=== PATIENT | male | born 1970 | race Two or more races ===

== ENCOUNTER 2016-08-22 09:09 | Day surgery (SDC) | payer MEDICARE, OTHER ==
[~2016-08-22 09:09] MED LIST: PROPOFOL INJ 200 MG/20 ML VIAL IV ONE
[2016-08-22 10:45] VITALS: BP 133/76
--- NOTE | 2016-08-22 12:53 | Operative Report ---
Operative Report DATE OF SURGERY: 08/22/16 Operative Report: The risks, benefits and alternatives of the procedure including risks of bleeding, patient requiring surgery are explained to the patient in detail and informed consent is obtained. Patient is taken back to the endoscopy suite. He is placed in a left, lateral decubital position. Timeout is called. Propofol medications administered. An Olympus videoscope this inserted into the patient's rectum. Keeping the lumen in site at all times the scope was then gradually advanced all the way to the cecum. The cecum as identified by the usual anatomical landmarks of the ileocecal valve as well as the appendiceal office. Photodocumentation is obtained. The scope was then sequentially pulled back via the rest segments of the colon including the ascending colon, hepatic flexure, transverse colon, splenic flexure, descending colon and finally into the rectosigmoid colon. Retroflexion maneuvers performed. PREOPERATIVE DIAGNOSIS: Rectal bleeding POSTOPERATIVE DIAGNOSIS: Colon polyp in the ascending colon is removed via snare polypectomy. Internal hemorrhoids OPERATION: Colonoscopy with snare polypectomy SURGEON: DAHLIA LIAO ANESTHESIA: LMAC TISSUE REMOVED OR ALTERED: Colon polyp retrieved COMPLICATIONS: None. ESTIMATED BLOOD LOSS: none. INTRAOPERATIVE FINDINGS: No bleeding lesions noted. And will probably need hemorrhoidectomy. Colon polyp retrieved. No masses, AVMs, diverticulosis noted PROCEDURE: Patient tolerated the procedure well. No immediate post procedure complications are noted. Patient is discharged in good condition. Discharge date 08/22/2016. Discharge diet: Regular. Discharge activity: Regular. Patient does need a follow-up in 2-3 weeks. Surveillance colonoscopy in 3-5 years. We'll await on biopsies. Patient is instructed to call the office or proceed to the emergency room to any further problems or questions.
== END 2016-08-22 10:40 | disposition home or self-care (01) ==
LOC: END 09:09
PROVIDERS: ATTEND Internal Medicine Gastroenterology
PROC: 0DBK8ZX Excision of Ascending Colon, Via Natural or Artificial Opening Endoscopic, Diagnostic (ICD-10-PCS; principal; 2016-08-22 12:00)
DX: D12.2 Benign neoplasm of ascending colon (principal); K62.5 Hemorrhage of anus and rectum; M19.90 Unspecified osteoarthritis, unspecified site; I10 Essential (primary) hypertension; M10.9 Gout, unspecified; K21.9 Gastro-esophageal reflux disease without esophagitis; E66.9 Obesity, unspecified; Z68.42 Body mass index [BMI] 45.0-49.9, adult; Z79.82 Long term (current) use of aspirin; Z79.899 Other long term (current) drug therapy
CPT/HCPCS: 45385; 88305 ×2; J2704; 810

== ENCOUNTER 2018-05-05 22:01 | Emergency (ER) | payer MEDICARE, OTHER ==
[2018-05-05] MEDS ORDERED: CEFTRIAXONE INJ 1000 MG VIAL IV ONE (23:05)
[2018-05-05] MEDS ORDERED: VANCOMYCIN HCL INJ 1000 MG VIAL IV ONE (23:05)
--- NOTE | 2018-05-05 23:08 | ER Document Report ---
ED General - General Chief Complaint: Foot Pain Stated Complaint: LEFT FOOT INFECTION Time Seen by Provider: 05/05/18 22:48 Notes: Patient is a pleasant 47-year-old male presents with complaint of a possible infection on the left foot. He says approximately 3 days ago he noticed an area of an abscess on the lateral aspect of his left foot. He ignored it now the redness is spread into his left foot and lower leg. No fevers. No vomiting. No diarrhea. He is not diabetic. He has no other complaints at this time. TRAVEL OUTSIDE OF THE [place] IN LAST 30 DAYS: No - Related Data Allergies/Adverse Reactions: No Known Allergies Allergy (Verified 05/06/18 00:55) Past Medical History - Social History Smoking Status: Never Smoker Frequency of alcohol use: None Drug Abuse: None Family History: Reviewed & Not Pertinent - Past Medical History Cardiac Medical History: Reports: Hx Hypertension Denies: Hx Coronary Artery Disease, Hx Heart Attack Pulmonary Medical History: Reports: Hx COPD Denies: Hx Asthma, Hx Bronchitis, Hx Pneumonia Neurological Medical History: Denies: Hx Cerebrovascular Accident, Hx Seizures GI Medical History: Reports: Hx Gastroesophageal Reflux Disease Musculoskeletal Medical History: Reports Hx Arthritis Past Surgical History: Reports: Hx Orthopedic Surgery - shoulder - Immunizations Hx Diphtheria, Pertussis, Tetanus Vaccination: Yes Review of Systems - Review of Systems Notes: My Normal Review Basic REVIEW OF SYSTEMS: CONSTITUTIONAL : Denies fever, chills, or sweats. Denies recent illness. RESPIRATORY: Denies cough, cold, or chest congestion. Denies shortness of breath, difficulty breathing, or wheezing. GASTROINTESTINAL: Denies abdominal pain. Denies nausea, vomiting, or diarrhea. MUSCULOSKELETAL: Pain in left foot. SKIN: Denies rash or skin lesions. NEUROLOGICAL: Denies sensory or motor loss. ALL OTHER SYSTEMS REVIEWED AND NEGATIVE. Physical Exam - Vital signs Vitals: Temp Pulse Resp BP Pulse Ox 98.3 F 79 21 H 136/84 H 97 05/06/18 00:49 05/06/18 00:49 05/06/18 00:49 05/06/18 00:49 05/06/18 00:49 - Notes Notes: General Appearance: Well nourished, alert, cooperative, no acute distress, mild to moderate obvious discomfort. Vitals: reviewed, See vital signs table. Eyes: PERRL, EOMI, Conjuctiva clear Mouth: No decreasd moisture Lungs: No wheezing, No rales, No rhonci, No accessory muscle use, good air exchange bilaterally. Heart: Normal rate, Regular rythm, No murmur, no rub Abdomen: Normal BS, soft, No rigidity, No abdominal tenderness, No guarding, no rebound, no abdominal masses, no organomegaly Extremities: Patient has appears to be some cutaneous abscess on the lateral aspect proximal to the left fifth MTP. Some redness and swelling into the foot and distal lower leg. No crepitance. No pain out of proportion to exam. Skin: warm, dry, appropriate color, no rash Neuro: speech clear, oriented x 3, normal affect, responds appropriately to questions. Course - Re-evaluation Re-evalutation: 05/06/18 06:23 Abscess was incision drained. Patient feels improvement after having an abscess in size. Small amount of purulent drainage was expressed. Does have cellulitis going to his foot and lower leg. He was given a dose of vancomycin and Rocephin. I did talk to him about admission versus outpatient treatment. I told him would be okay with outpatient treatment as long as he agreed to return to the ER on Monday for reevaluation. Patient says he prefers not to stay in the hospital and agrees to return to ER immediately on Monday for reevaluation. He is to return to ER immediately if he has spreading redness, increasing swelling, fevers, or if he feels his leg is worsening. Patient otherwise clinically looks very well. His exam is not consistent with necrotizing fasciitis. He has no crepitus. His pain is not out of proportion to exam. I did offer the patient crutches but he says he does not need them and says it is hard for him to use crutches because of a chronic issue with his left elbow and he feels he is able to walk without them. Dictation of this chart was performed using voice recognition software; therefore, there may be some unintended grammatical errors. - Vital Signs Vital signs: Temp Pulse Resp BP Pulse Ox 97.7 F 77 20 150/50 H 97 05/06/18 03:04 05/06/18 03:04 05/06/18 03:04 05/06/18 03:04 05/06/18 03:04 - Laboratory Result Diagrams: 05/05/18 23:14 05/05/18 23:14 Laboratory results interpreted by me: 05/05/18 05/05/18 23:14 23:14 WBC 14.8 H Lymphocytes % 9.8 L Absolute Neutrophils 11.4 H Sodium 134.5 L Chloride 97 L Glucose 123 H Discharge - Discharge Clinical Impression: Foot abscess, left Cellulitis Qualifiers: Site of cellulitis: extremity Site of cellulitis of extremity: lower extremity Laterality: left Qualified Code(s): L03.116 - Cellulitis of left lower limb Condition: Good Disposition: HOME, SELF-CARE Additional Instructions: Please take the antibiotics as prescribed. Please follow up closely with the ER on Monday for reevaluation of your leg. please return to the ER immediately if you develop spreading redness, increasing swelling, fevers, or feel that you are worsening in any way. Stop the antibiotic and return to the ER immediately if you develop a rash. Prescriptions: Cephalexin Monohydrate [Keflex 500 mg Capsule] 500 mg PO QID #28 capsule Sulfamethoxazole/Trimethoprim [Bactrim Ds Tablet] 1 each PO BID #14 tablet Referrals: LORIE GRACE MD [Primary Care Provider] - Follow up in 3-5 days
[2018-05-05 23:42] LABS: ABSOLUTE BASOPHILS # (AUTO) 0.1 10^3/uL (0.0-0.2); ABSOLUTE EOSINOPHILS # (AUTO) 0.5 10^3/uL (0.0-0.6); ABSOLUTE LYMPHOCYTES (AUTO) 1.5 10^3/uL (0.5-4.7); ABSOLUTE MONOCYTES (AUTO) 1.3 10^3/uL (0.1-1.4); ABSOLUTE NEUT (AUTO) 11.4 10^3/uL (1.7-8.2); BASOPHILS % (AUTO) 0.9 % (0-2); EOSINOPHILS % (AUTO) 3.2 % (0-6); HEMATOCRIT 42.8 % (37.9-51.0); HEMOGLOBIN 14.8 g/dL (13.5-17.0); LYMPHOCYTES % (AUTO) 9.8 % (13-45); MEAN CORPUSCULAR HEMOGLOBIN 31.2 pg (27.0-33.4); MEAN CORPUSCULAR HGB CONC 34.7 g/dL (32.0-36.0); MEAN CORPUSCULAR VOLUME 90 fl (80-97); MONOCYTES % (AUTO) 8.9 % (3-13); PLATELET COUNT 253 10^3/uL (150-450); RED BLOOD COUNT 4.77 10^6/uL (4.35-5.55); RED CELL DISTRIBUTION WIDTH 13.3 % (11.5-14.0); SEGMENTED NEUTROPHILS % (AUTO) 77.2 % (42-78); TOTAL CELLS COUNTED % (AUTO) 100 %; WHITE BLOOD COUNT 14.8 10^3/uL (4.0-10.5)
[2018-05-05 23:48] LABS: ANION GAP 13 (5-19); BLOOD UREA NITROGEN 10 mg/dL (7-20); CALCIUM 9.1 mg/dL (8.4-10.2); CARBON DIOXIDE 25 mmol/L (22-30); CHLORIDE 97 mmol/L (98-107); GLUCOSE 123 mg/dL (75-110); POTASSIUM 3.8 mmol/L (3.6-5.0); SODIUM 134.5 mmol/L (137-145)
[2018-05-06] MEDS ORDERED: HYDROMORPHONE HCL INJ/PF 2 MG/ML AMPULE IV ONE (00:22)
[2018-05-06 03:07] VITALS: BP 150/50
== END 2018-05-06 03:07 | disposition home or self-care (01) ==
LOC: ER 22:01
PROC: 0H9NXZZ Drainage of Left Foot Skin, External Approach (ICD-10-PCS; principal; 2018-05-05)
DX: L02.612 Cutaneous abscess of left foot (principal); L03.116 Cellulitis of left lower limb; M79.672 Pain in left foot; I10 Essential (primary) hypertension
CPT/HCPCS: 99283; 96365; 96366; 96367; 36415; 87070; 87205; 85025; 87075; 87077; 80048; 87186; 10060; J1170; J0696; J3370

== ENCOUNTER 2018-05-07 19:35 | Inpatient (IN) | payer MEDICARE, OTHER ==
[2018-05-07] MEDS ORDERED: MORPHINE SULFATE 10 MG/ML INJ IV ONE (22:40)
[2018-05-07] MEDS ORDERED: ONDANSETRON HCL INJ/PF 4 MG/2 ML SDV IV ONE (22:40)
[2018-05-07] MEDS ORDERED: VANCOMYCIN HCL INJ 1000 MG VIAL IV ONE (22:40)
[2018-05-07] MEDS ORDERED: CEFTRIAXONE INJ 1000 MG VIAL IV ONE (22:41)
--- NOTE | 2018-05-07 22:44 | ER Document Report ---
ED Extremity Problem, Lower - General Chief Complaint: Foot Injury Stated Complaint: FOOT PAIN Time Seen by Provider: 05/07/18 22:29 Notes: Patient is a 47-year-old male that comes to the emergency department for chief complaint of left foot infection. He states she is here on Monday, had an incision and drainage performed, states he has been taking Keflex and Bactrim antibiotics since Monday, however the area has significantly worsened with increased pain, increased redness, increased warmth and spreading. He denies fevers or chills, nausea or vomiting. He denies history of diabetes. His tetanus is reportedly up-to-date within 5 years. Past medical history of hypertension, GERD, former smoker, obesity. TRAVEL OUTSIDE OF THE [place] IN LAST 30 DAYS: No - Related Data Allergies/Adverse Reactions: No Known Allergies Allergy (Verified 05/06/18 00:55) Past Medical History - General Information source: Patient - Social History Smoking Status: Former Smoker Frequency of alcohol use: Occasional Drug Abuse: None Lives with: Family Family History: Reviewed & Not Pertinent - Past Medical History Cardiac Medical History: Reports: Hx Hypertension Denies: Hx Coronary Artery Disease, Hx Heart Attack Pulmonary Medical History: Reports: Hx COPD Denies: Hx Asthma, Hx Bronchitis, Hx Pneumonia Neurological Medical History: Denies: Hx Cerebrovascular Accident, Hx Seizures Renal/ Medical History: Denies: Hx Peritoneal Dialysis GI Medical History: Reports: Hx Gastroesophageal Reflux Disease Musculoskeletal Medical History: Reports Hx Arthritis Past Surgical History: Reports: Hx Orthopedic Surgery - shoulder - Immunizations Hx Diphtheria, Pertussis, Tetanus Vaccination: Yes Review of Systems - Review of Systems Constitutional: No symptoms reported EENT: No symptoms reported Cardiovascular: No symptoms reported Respiratory: No symptoms reported Gastrointestinal: No symptoms reported Genitourinary: No symptoms reported Male Genitourinary: No symptoms reported Musculoskeletal: See HPI Skin: See HPI Hematologic/Lymphatic: No symptoms reported Neurological/Psychological: No symptoms reported Physical Exam - Vital signs Vitals: Temp Pulse Resp BP Pulse Ox 98.7 F 65 20 131/69 H 96 05/07/18 20:01 05/07/18 20:01 05/07/18 20:01 05/07/18 20:01 05/07/18 20:01 - Notes Notes: GENERAL: Alert, interacts well. No acute distress. HEAD: Normocephalic, atraumatic. EYES: Pupils equal, round, and reactive to light. Extraocular movements intact. ENT: Oral mucosa moist, tongue midline. NECK: Full range of motion. Supple. Trachea midline. LUNGS: Clear to auscultation bilaterally, no wheezes, rales, or rhonchi. No respiratory distress. HEART: Regular rate and rhythm. No murmur ABDOMEN: Soft, non-tender. Non-distended. Bowel sounds present in all 4 quadrants. EXTREMITIES: Left lower extremity with soft tissue swelling of the foot and distal tibia, erythema extending from the foot up to the distal leg, open wound over the lateral aspect of the foot with some small amount of purulent material expressed. Range of motion of the ankle intact, normal knee exam, normal distal neurovascular exam, normal lower extremity exam otherwise. BACK: no cervical, thoracic, lumbar midline tenderness. No saddle anesthesia, normal distal neurovascular exam. NEUROLOGICAL: Alert and oriented x3. Normal speech. [cranial nerves II through XII grossly intact]. PSYCH: Normal affect, normal mood. SKIN: Warm, dry, normal turgor. No rashes or lesions noted. Course - Re-evaluation Re-evalutation: The incision and drainage location is still open, I expressed some purulent material out of it, afterwards there was some small amount of bleeding. Does not appear to be any fluctuant or indurated area otherwise. The main concern appears to be a large amount of swelling and cellulitis from spreading infection. Unfortunately patient has already been taking outpatient antibiotics. CBC shows leukocytosis. Patient is not tachycardic or febrile. He is not hypotensive. Will discuss with hospitalist for admission, initiated vancomycin and Rocephin antibiotics, patient is not a diabetic. Because of outpatient treatment failure patient will be admitted to hospitalist Dr. Lord, he recommends medical floor admission, recommends x-ray imaging to rule out gas in the foot first. No gas in the foot, patient admitted to medical floor. Patient states agreement with plan. - Vital Signs Vital signs: Temp Pulse Resp BP Pulse Ox 97.6 F 73 20 143/62 H 96 05/08/18 04:22 05/08/18 04:22 05/08/18 04:22 05/08/18 04:22 05/08/18 04:22 - Laboratory Result Diagrams: 05/07/18 23:55 05/07/18 23:55 Laboratory results interpreted by me: 05/07/18 05/07/18 23:55 23:55 WBC 13.7 H Lymphocytes % 12.3 L Absolute Neutrophils 10.0 H Sodium 134.1 L Chloride 97 L BUN 6 L Glucose 125 H Discharge - Discharge Clinical Impression: Left leg pain Cellulitis Qualifiers: Site of cellulitis: extremity Site of cellulitis of extremity: lower extremity Laterality: left Qualified Code(s): L03.116 - Cellulitis of left lower limb Condition: Stable Disposition: ADMITTED INPATIENT Admitting Provider: Hospitalist Unit Admitted: Medical Floor
[2018-05-08 00:21] LABS: ABSOLUTE BASOPHILS # (AUTO) 0.1 10^3/uL (0.0-0.2); ABSOLUTE EOSINOPHILS # (AUTO) 0.6 10^3/uL (0.0-0.6); ABSOLUTE LYMPHOCYTES (AUTO) 1.7 10^3/uL (0.5-4.7); ABSOLUTE MONOCYTES (AUTO) 1.3 10^3/uL (0.1-1.4); BASOPHILS % (AUTO) 0.9 % (0-2); EOSINOPHILS % (AUTO) 4.5 % (0-6); HEMATOCRIT 41.4 % (37.9-51.0); HEMOGLOBIN 14.6 g/dL (13.5-17.0); LYMPHOCYTES % (AUTO) 12.3 % (13-45); MEAN CORPUSCULAR HEMOGLOBIN 31.2 pg (27.0-33.4); MEAN CORPUSCULAR HGB CONC 35.3 g/dL (32.0-36.0); MEAN CORPUSCULAR VOLUME 89 fl (80-97); MONOCYTES % (AUTO) 9.4 % (3-13); PLATELET COUNT 290 10^3/uL (150-450); RED BLOOD COUNT 4.68 10^6/uL (4.35-5.55); RED CELL DISTRIBUTION WIDTH 13.2 % (11.5-14.0); SEGMENTED NEUTROPHILS % (AUTO) 72.9 % (42-78); TOTAL CELLS COUNTED % (AUTO) 100 %; WHITE BLOOD COUNT 13.7 10^3/uL (4.0-10.5)
[2018-05-08 00:32] LABS: ANION GAP 13 (5-19); BLOOD UREA NITROGEN 6 mg/dL (7-20); CARBON DIOXIDE 24 mmol/L (22-30); CHLORIDE 97 mmol/L (98-107); GLUCOSE 125 mg/dL (75-110); POTASSIUM 3.9 mmol/L (3.6-5.0); SODIUM 134.1 mmol/L (137-145)
--- NOTE | 2018-05-08 01:19 | RADIOLOGY REPORT (SQ) ---
CLINICAL DATA: 47-year-old male with infected wound on lateral aspect of left foot with increasing redness and warmth. TECHNICAL DATA: Three x-ray views of the left foot were performed on 05/08/2018 at 1:05 AM. COMPARISONS: None FINDINGS: There is no evidence of fracture or dislocation. There is no significant arthritis or degenerative change. No focal lytic or sclerotic bone lesions are seen. Bone mineralization is normal There is diffuse soft tissue swelling surrounding the left foot and ankle particularly along the dorsal aspect of the left foot. No definite subcutaneous emphysema is identified. IMPRESSION: No evidence of acute osseous injury involving the left foot. There is diffuse soft tissue swelling surrounding the left foot and ankle particularly along the dorsal aspect of the left foot.
[2018-05-08] MEDS ORDERED: MAG HYDROX/AL HYDROX/SIMETH SUSP 30 ML UDCUP PO PRN (01:26)
[2018-05-08] MEDS ORDERED: ACETAMINOPHEN 325 MG TABLET PO PRN (01:26)
[2018-05-08] MEDS ORDERED: IPRATROPIUM/ALBUTEROL 0.5-2.5 MG/3 ML AMPUL NEB PRN (01:26)
[2018-05-08] MEDS ORDERED: NORMAL SALINE 1000 ML 1,000 ML IV PRN (01:30)
[2018-05-08] MEDS ORDERED: VANCOMYCIN HCL 0 MG in DEXTROSE 5%-WATER 250 ML IV NR (01:30)
[2018-05-08] MEDS: KETOROLAC TROMETHAMINE INJ/PF 30 MG/1 ML SDV IV PRN (04:46)
[2018-05-08 05:24] LABS: ABSOLUTE BASOPHILS # (AUTO) 0.1 10^3/uL (0.0-0.2); ABSOLUTE EOSINOPHILS # (AUTO) 0.6 10^3/uL (0.0-0.6); ABSOLUTE LYMPHOCYTES (AUTO) 1.5 10^3/uL (0.5-4.7); ABSOLUTE MONOCYTES (AUTO) 1.1 10^3/uL (0.1-1.4); ABSOLUTE NEUT (AUTO) 7.5 10^3/uL (1.7-8.2); BASOPHILS % (AUTO) 0.9 % (0-2); EOSINOPHILS % (AUTO) 5.5 % (0-6); HEMATOCRIT 39.7 % (37.9-51.0); HEMOGLOBIN 13.9 g/dL (13.5-17.0); LYMPHOCYTES % (AUTO) 14.3 % (13-45); MEAN CORPUSCULAR HEMOGLOBIN 31.4 pg (27.0-33.4); MEAN CORPUSCULAR HGB CONC 35.1 g/dL (32.0-36.0); MEAN CORPUSCULAR VOLUME 90 fl (80-97); MONOCYTES % (AUTO) 9.9 % (3-13); PLATELET COUNT 222 10^3/uL (150-450); RED BLOOD COUNT 4.43 10^6/uL (4.35-5.55); RED CELL DISTRIBUTION WIDTH 13.3 % (11.5-14.0); SEGMENTED NEUTROPHILS % (AUTO) 69.4 % (42-78); TOTAL CELLS COUNTED % (AUTO) 100 %; WHITE BLOOD COUNT 10.8 10^3/uL (4.0-10.5)
[2018-05-08] MEDS: HEPARIN SOD (PORCINE) 5,000 UNIT/ML 1 ML SYRINGE SUBCUT SCH ×3 (05:37→21:41)
--- NOTE | 2018-05-08 05:49 | PDOC H&P ---
History of Present Illness Admission Date/PCP: 05/08/18 01:40 LORIE GRACE MD Patient complains of: Left foot and leg pain and swelling History of Present Illness: ESHA TODD is a 47 year old male with a past medical history of morbid obesity, congestive heart failure, obstructive sleep apnea, alcohol dependence and chronic pain. Patient presents 2 days after a I&D of the left lateral foot abscess in the emergency room for which she was placed on Bactrim. Patient is noted marketed worsening with swelling and pain prompting reevaluation. He is found to have fluctuance, leukocytosis and circumferential erythema of the lower leg. He started on empiric antibiotics and referred to the hospitalist for admission. Past Medical History Cardiac Medical History: Reports: Congestive Heart Failure - Unknown ejection fraction, Hypertension Denies: Coronary Artery Disease, Myocardial Infarction Pulmonary Medical History: Reports: Chronic Obstructive Pulmonary Disease (COPD) , Sleep Apnea Denies: Asthma, Bronchitis, Pneumonia Neurological Medical History: Denies: Seizures Endocrine Medical History: Reports: Obesity GI Medical History: Reports: Gastroesophageal Reflux Disease Musculoskeltal Medical History: Reports: Arthritis Psychiatric Medical History: Reports: Alcohol Dependency, Depression - anxiety Hematology: Denies: Anemia Past Surgical History Past Surgical History: Reports: Orthopedic Surgery - shoulder Social History Information Source: Patient - 4-6 beers per day Lives with: Family Smoking Status: Former Smoker Number of Years Smokin Last Time Smoked: quit 01-30 Frequency of Alcohol Use: Heavy Hx Recreational Drug Use: No Drugs: None Hx Prescription Drug Abuse: No - Advance Directive Resuscitation Status: Full Code Family History Family History: Hypertension Parental Family History Reviewed: Yes Children Family History Reviewed: Yes Sibling(s) Family History Reviewed.: Yes Medication/Allergy Home Medications: Allopurinol [Zyloprim 100 mg Tablet] 100 mg PO DAILY 08/19/16 Dextroamphetamine/Amphetamine [Adderall 20 mg Tablet] 10 mg PO BIDACLS 08/19/16 Dextroamphetamine/Amphetamine [Adderall 30 mg Tablet] 30 mg PO QAM 08/19/16 Oxycodone HCl [Oxycontin] 30 mg PO TID 08/19/16 Cephalexin Monohydrate [Keflex 500 mg Capsule] 500 mg PO QID #28 capsule Cyanocobalamin (Vitamin B-12) [Vitamin B12] 2,500 mcg PO DAILY 05/06/18 Oxycodone HCl/Acetaminophen [Percocet 10-325 Mg Tablet] 1 each PO TID 05/06/18 Sulfamethoxazole/Trimethoprim [Bactrim Ds Tablet] 1 each PO BID #14 tablet 05/06 Allergies/Adverse Reactions: No Known Allergies Allergy (Verified 05/06/18 00:55) Review of Systems Constitutional: ABSENT: chills, fever(s), headache(s), weight gain, weight loss Eyes: ABSENT: visual disturbances Ears: ABSENT: hearing changes Cardiovascular: ABSENT: chest pain, dyspnea on exertion, edema, orthropnea, palpitations Respiratory: ABSENT: cough, hemoptysis Gastrointestinal: ABSENT: abdominal pain, constipation, diarrhea, hematemesis, hematochezia, nausea, vomiting Genitourinary: ABSENT: dysuria, hematuria Musculoskeletal: ABSENT: joint swelling Integumentary: ABSENT: rash, wounds Neurological: ABSENT: abnormal gait, abnormal speech, confusion, dizziness, focal weakness, syncope Psychiatric: ABSENT: anxiety, depression, homidical ideation, suicidal ideation Endocrine: ABSENT: cold intolerance, heat intolerance, polydipsia, polyuria Hematologic/Lymphatic: ABSENT: easy bleeding, easy bruising Physical Exam Vital Signs: Temp Pulse Resp BP Pulse Ox 97.6 F 73 20 143/62 H 96 05/08/18 04:22 05/08/18 04:22 05/08/18 04:22 05/08/18 04:22 05/08/18 04:22 Intake & Output 05/06/18 05/07/18 05/08/18 11:59 11:59 11:59 Weight 135 kg General appearance: PRESENT: cooperative, mild distress, morbidly obese Head exam: PRESENT: atraumatic, normocephalic Eye exam: PRESENT: conjunctiva pink, EOMI, PERRLA. ABSENT: scleral icterus Ear exam: PRESENT: normal external ear exam Mouth exam: PRESENT: moist, tongue midline Neck exam: ABSENT: carotid bruit, JVD, lymphadenopathy, thyromegaly Respiratory exam: PRESENT: clear to auscultation kenzie. ABSENT: rales, rhonchi, wheezes Cardiovascular exam: PRESENT: RRR. ABSENT: diastolic murmur, rubs, systolic murmur Pulses: PRESENT: normal dorsalis pedis pul Vascular exam: PRESENT: normal capillary refill GI/Abdominal exam: PRESENT: normal bowel sounds, soft. ABSENT: distended, guarding, mass, organolmegaly, rebound, tenderness Rectal exam: PRESENT: deferred Extremities exam: PRESENT: tenderness, +2 edema - Left leg Neurological exam: PRESENT: alert, awake, oriented to person, oriented to place , oriented to time, oriented to situation, CN II-XII grossly intact. ABSENT: motor sensory deficit Psychiatric exam: PRESENT: appropriate affect, normal mood. ABSENT: homicidal ideation, suicidal ideation Skin exam: PRESENT: erythema, other - 1.5 cm fluctuant abscess with circumferential erythema to the mid lower leg Adult Front & Back Image: 1 - Circumferential erythema, lateral foot fluctuance Results Laboratory Results: 05/08/18 04:36 05/08/18 04:36 WBC 10.8 H RBC 4.43 Hgb 13.9 Hct 39.7 MCV 90 MCH 31.4 MCHC 35.1 RDW 13.3 Plt Count 222 Seg Neutrophils % 69.4 Lymphocytes % 14.3 Monocytes % 9.9 Eosinophils % 5.5 Basophils % 0.9 Absolute Neutrophils 7.5 Absolute Lymphocytes 1.5 Absolute Monocytes 1.1 Absolute Eosinophils 0.6 Absolute Basophils 0.1 Impressions: Foot X-Ray 05/08/18 00:47 IMPRESSION: No evidence of acute osseous injury involving the left foot. There is diffuse soft tissue swelling surrounding the left foot and ankle particularly along the dorsal aspect of the left foot. Assessment & Plan - Diagnosis (1) Foot abscess, left Is this a current diagnosis for this admission?: Yes Plan: Empiric antibiotics initiated, CBC, blood culture and surgical consult. (2) Congestive heart failure Is this a current diagnosis for this admission?: Yes Plan: Appears compensated, continue outpatient regiment (3) Cellulitis Qualifiers: Site of cellulitis: extremity Site of cellulitis of extremity: lower extremity Laterality: left Qualified Code(s): L03.116 - Cellulitis of left lower limb Is this a current diagnosis for this admission?: Yes Plan: Please see #1 (4) Sleep apnea Is this a current diagnosis for this admission?: Yes Plan: Continue CPAP, avoid narcotics reducing respiratory drive - Time Time Spent: 50 to 70 Minutes - Inpatient Certification Medical Necessity: Need Close Monitoring Due to Risk of Patient Decompensation
[2018-05-08 05:50] LABS: ANION GAP 9 (5-19); BLOOD UREA NITROGEN 8 mg/dL (7-20); CALCIUM 8.8 mg/dL (8.4-10.2); CARBON DIOXIDE 28 mmol/L (22-30); CHLORIDE 97 mmol/L (98-107); GLUCOSE 179 mg/dL (75-110); POTASSIUM 4.3 mmol/L (3.6-5.0); SODIUM 133.5 mmol/L (137-145)
[2018-05-08] MEDS: MORPHINE SULFATE 10 MG/ML INJ IV PRN ×4 (08:26→21:42)
[2018-05-08] MEDS: ALLOPURINOL 100 MG TABLET PO SCH (09:37)
[2018-05-08] MEDS: VANCOMYCIN HCL 1,500 MG in DEXTROSE 5%-WATER 250 ML IV SCH ×2 (09:38→18:07)
[2018-05-08] MEDS ORDERED: CEFTRIAXONE 1 GM/D5W RTU 1 GM/50 ML RTUPB IV SCH (10:00)
--- NOTE | 2018-05-08 12:35 | PDOC H&P ---
History of Present Illness Admission Date/PCP: 05/08/18 01:40 LORIE GRACE MD Patient complains of: Left foot pain History of Present Illness: ESHA TODD is a 47 year old male patient presents to emergency room on with redness swelling and pain of his left foot. While in the emergency room he underwent irrigation and debridement at bedside and was started on Bactrim. Unfortunately patient continued to have pain and swelling that was traveling up his leg and then presents emergency room last evening due to this complaint. Patient is unaware of the of the exact cause but feels as though it may have been secondary to shoe wear. Denies travel or insect bite. States pain is worse with motion and weightbearing. Patient denies history of diabetes. Denies numbness. Pain 10/14. Past Medical History Cardiac Medical History: Reports: Congestive Heart Failure - Unknown ejection fraction, Hypertension Denies: Coronary Artery Disease, Myocardial Infarction Pulmonary Medical History: Reports: Chronic Obstructive Pulmonary Disease (COPD) , Sleep Apnea Denies: Asthma, Bronchitis, Pneumonia Neurological Medical History: Denies: Seizures Endocrine Medical History: Reports: Obesity GI Medical History: Reports: Gastroesophageal Reflux Disease Musculoskeltal Medical History: Reports: Arthritis Psychiatric Medical History: Reports: Alcohol Dependency, Depression - anxiety Hematology: Denies: Anemia Past Surgical History Past Surgical History: Reports: Orthopedic Surgery - shoulder Social History Lives with: Family Smoking Status: Former Smoker Number of Years Smokin Last Time Smoked: quit 01-30 Frequency of Alcohol Use: Heavy Hx Recreational Drug Use: No Drugs: None Hx Prescription Drug Abuse: No - Advance Directive Resuscitation Status: Full Code Family History Family History: Hypertension Parental Family History Reviewed: No Children Family History Reviewed: No Sibling(s) Family History Reviewed.: No Medication/Allergy Home Medications: Allopurinol [Zyloprim 100 mg Tablet] 100 mg PO DAILY 05/08/18 Cyanocobalamin (Vitamin B-12) [Vitamin B12] 2,500 mcg PO DAILY 05/08/18 Dextroamphetamine/Amphetamine [Dextroamp-Amphetamin 20 mg Tab] 40 mg PO DAILY@ 1400 05/08/18 Dextroamphetamine/Amphetamine [Dextroamp-Amphetamin 30 mg Tab] 30 mg PO ACBRKFST 05/08/18 Furosemide [Lasix 40 mg Tablet] 40 mg PO BID 05/08/18 Oxycodone HCl 30 mg PO Q8 05/08/18 Oxycodone HCl/Acetaminophen [Endocet 10-325 mg Tablet] 1 tab PO Q8HP PRN Pregabalin [Lyrica 50 mg Capsule] 50 mg PO Q8 05/08/18 Allergies/Adverse Reactions: No Known Allergies Allergy (Verified 05/06/18 00:55) Review of Systems Constitutional: PRESENT: fever(s). ABSENT: chills, headache(s), weight gain, weight loss Eyes: ABSENT: visual disturbances Ears: ABSENT: hearing changes Cardiovascular: ABSENT: chest pain, dyspnea on exertion, edema, orthropnea, palpitations Respiratory: ABSENT: cough, hemoptysis Gastrointestinal: ABSENT: abdominal pain, constipation, diarrhea, hematemesis, hematochezia, nausea, vomiting Genitourinary: ABSENT: dysuria, hematuria Musculoskeletal: PRESENT: as per HPI Integumentary: PRESENT: as per HPI, wounds. ABSENT: rash Neurological: ABSENT: abnormal gait, abnormal speech, confusion, dizziness, focal weakness, syncope Psychiatric: ABSENT: anxiety, depression, homidical ideation, suicidal ideation Endocrine: ABSENT: cold intolerance, heat intolerance, menstrual abnormalities, polydipsia, polyuria Hematologic/Lymphatic: ABSENT: easy bleeding, easy bruising, lymphadenopathy Physical Exam Vital Signs: Temp Pulse Resp BP Pulse Ox 97.5 F 64 18 158/85 H 98 05/08/18 08:10 05/08/18 08:10 05/08/18 08:10 05/08/18 08:10 05/08/18 08:10 Intake & Output 05/07/18 05/08/18 05/09/18 06:59 06:59 06:59 Intake Total 675 Output Total 0 450 Balance 0 225 Weight 135 kg General appearance: PRESENT: no acute distress, well-developed, well-nourished Head exam: PRESENT: atraumatic, normocephalic Eye exam: PRESENT: conjunctiva pink, EOMI, PERRLA. ABSENT: scleral icterus Ear exam: PRESENT: normal external ear exam Mouth exam: PRESENT: moist, tongue midline Neck exam: PRESENT: full ROM. ABSENT: carotid bruit, JVD, lymphadenopathy, thyromegaly Respiratory exam: PRESENT: unlabored Cardiovascular exam: PRESENT: RRR. ABSENT: diastolic murmur, rubs, systolic murmur Pulses: PRESENT: normal dorsalis pedis pul, +2 pedal pulses bilateral Vascular exam: PRESENT: normal capillary refill GI/Abdominal exam: PRESENT: normal bowel sounds, soft, other - Obese. ABSENT: distended, guarding, mass, organolmegaly, rebound, tenderness Rectal exam: PRESENT: deferred Musculoskeletal exam: PRESENT: other - Left foot: Wound along the MTP joint at the fifth digit laterally. Small amount of expressible purulence from the region. No palpable fluctuance deep. Previous irrigation debridement site travels down to the lateral aspect of the fifth MTP joint. Erythema noted along the dorsum of the foot improved erythema along the lower leg as compared to the previous demarcation. Appropriate tenderness to palpation. Intact sensation to light touch. Cap refill less than 2 seconds. Dorsalis pedis pulse 2+. Neurological exam: PRESENT: alert, awake, oriented to person, oriented to place , oriented to time, oriented to situation, CN II-XII grossly intact. ABSENT: motor sensory deficit Psychiatric exam: PRESENT: appropriate affect, normal mood. ABSENT: homicidal ideation, suicidal ideation Skin exam: PRESENT: dry, intact, warm. ABSENT: cyanosis, rash Results Laboratory Results: 05/08/18 04:36 05/08/18 04:36 05/08/18 05/08/18 04:36 04:36 WBC 10.8 H RBC 4.43 Hgb 13.9 Hct 39.7 MCV 90 MCH 31.4 MCHC 35.1 RDW 13.3 Plt Count 222 Seg Neutrophils % 69.4 Lymphocytes % 14.3 Monocytes % 9.9 Eosinophils % 5.5 Basophils % 0.9 Absolute Neutrophils 7.5 Absolute Lymphocytes 1.5 Absolute Monocytes 1.1 Absolute Eosinophils 0.6 Absolute Basophils 0.1 Sodium 133.5 L Potassium 4.3 Chloride 97 L Carbon Dioxide 28 Anion Gap 9 BUN 8 Creatinine 0.63 Est GFR ( Amer) > 60 Est GFR (Non-Af Amer) > 60 Glucose 179 H Calcium 8.8 Impressions: Foot X-Ray 05/08/18 00:47 IMPRESSION: No evidence of acute osseous injury involving the left foot. There is diffuse soft tissue swelling surrounding the left foot and ankle particularly along the dorsal aspect of the left foot. Status: Image reviewed by me - I reviewed above radiographs demonstrating soft tissue swelling no evidence of osseous abnormality as per radiology report Assessment & Plan - Diagnosis (1) Foot abscess, left Is this a current diagnosis for this admission?: Yes Plan: Patient has developed a left foot abscess possibly secondary to ulceration. Given patient's obesity and hyperglycemia this may be indicative of diabetes mellitus. Given the location and adjacent involvement of the MTP joint. I have recommended MRI to evaluate for location of deep abscess and possibility of osteomyelitis. Have recommended patient be placed with a wet-to-dry dressing until MRI is complete. If no evidence of osteomyelitis or deep abscess patient may benefit from consultation to the wound care clinic. Depending on MRI findings I discussed with the patient he may require operative intervention.
--- NOTE | 2018-05-08 13:31 | Progress Note ---
Provider Note Provider Note: ESHA TODD is a 47 year old male with a PMH of morbid obesity, CHF, YELENA, ETOH dependence and chronic pain. The patient was admitted for cellulitis stemming from a L lateral foot abscess. The patient was seen at [facility] 2 days ago - his wound was I&D in the ED and he was sent home with PO Bactrim. The patient returned to the ED because his pain, swelling and erythema continued to get worse despite antibiotics. The patient was admitted to the hospitalist service and Ortho Sx was consulted. 1. Abscess: L lateral foot abscess. No drainage but there appears to be multiple pus pockets. Circumfrential erythema and edema to L foot extending up LLE just below the knee. Patient is afebrile. Evaluated by Dr. Morales of Ortho who recommends an MRI to evaluate for osteomyelitis. MRI currently pending. Continue IV Vancomycin and Rocephin. Daily CBC. 2. Cellulitis: see above 3. Diabetes: Patient remains relatively HYPERglycemic. Denies history of diabetes. Plan to check HgbA1c in AM.
--- NOTE | 2018-05-08 16:28 | RADIOLOGY REPORT (SQ) ---
EXAM DESCRIPTION: FOOT RIGHT 2 VIEWS COMPLETED DATE/TIME: 05/08/2018 4:04 pm REASON FOR STUDY: MRI SCREENING FOREIGN BODY COMPARISON: None. NUMBER OF VIEWS: Two views. TECHNIQUE: AP and lateral radiographic images acquired of the right foot. LIMITATIONS: None. FINDINGS: MINERALIZATION: Normal. BONES: No acute fracture or dislocation. No worrisome bone lesions. JOINTS: Advanced osteoarthritis at the 1st metatarsophalangeal joint with a [id number] appearance. SOFT TISSUES: BB in the plantar soft tissues right foot near the 5th metatarsal head. OTHER: No other significant finding. 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
--- NOTE | 2018-05-08 18:42 | RADIOLOGY REPORT (SQ) ---
EXAM DESCRIPTION: MRI LT LOWER EXTREMITY COMBO COMPLETED DATE/TIME: 05/08/2018 6:07 pm REASON FOR STUDY: Abscess left foot COMPARISON: None. TECHNIQUE: Multiplanar imaging of the left foot to include fat and fluid sensitive sequences. LIMITATIONS: None. FINDINGS: BONE MARROW: No marrow signal alteration. Specifically no marrow replacement or marrow ed jaron. No evidence for osteomyelitis. No cortical break through. SOFT TISSUES: There is fluid seen along the distal 5th metatarsal laterally of the level of the metat arsal phalangeal joint. No discrete capsule. Maximum 3 cm in diameter. OTHER: No other significant finding. IMPRESSION: No osteomyelitis. Suspect organizing abscess in the soft tissues. TECHNICAL DOCUMENTATION: JOB ID: [id number] [employer] ([employer]: [place])- All Rights Reserved Reading location - IP/workstation name: [email or web address]
[2018-05-08] MEDS: CEFTRIAXONE SODIUM 1,000 MG in DEXTROSE 5%-WATER 50 ML IV SCH (21:41)
[2018-05-08] MEDS ORDERED: DEXTROSE 50%-WATER 25 GM/50 ML DISP.SYRIN IV PRN ×2 (23:07)
[2018-05-08] MEDS ORDERED: DEXTROSE 40% GEL 15 GM TUBE PO PRN ×2 (23:07)
[2018-05-08] MEDS ORDERED: GLUCAGON,HUMAN RECOMB 1 MG INJ SUBCUT PRN (23:07)
[2018-05-09] MEDS: VANCOMYCIN HCL 1,500 MG in DEXTROSE 5%-WATER 250 ML IV SCH ×3 (02:17→17:24)
[2018-05-09] MEDS: MORPHINE SULFATE 10 MG/ML INJ IV PRN ×4 (04:31→20:39)
[2018-05-09 05:30] LABS: ABSOLUTE BASOPHILS # (AUTO) 0.1 10^3/uL (0.0-0.2); ABSOLUTE EOSINOPHILS # (AUTO) 0.5 10^3/uL (0.0-0.6); ABSOLUTE LYMPHOCYTES (AUTO) 1.2 10^3/uL (0.5-4.7); ABSOLUTE NEUT (AUTO) 5.8 10^3/uL (1.7-8.2); BASOPHILS % (AUTO) 0.8 % (0-2); EOSINOPHILS % (AUTO) 5.7 % (0-6); HEMATOCRIT 39.4 % (37.9-51.0); HEMOGLOBIN 13.8 g/dL (13.5-17.0); LYMPHOCYTES % (AUTO) 14.1 % (13-45); MEAN CORPUSCULAR HEMOGLOBIN 31.3 pg (27.0-33.4); MEAN CORPUSCULAR HGB CONC 35.1 g/dL (32.0-36.0); MEAN CORPUSCULAR VOLUME 89 fl (80-97); MONOCYTES % (AUTO) 11.6 % (3-13); PLATELET COUNT 277 10^3/uL (150-450); RED BLOOD COUNT 4.41 10^6/uL (4.35-5.55); RED CELL DISTRIBUTION WIDTH 13.2 % (11.5-14.0); SEGMENTED NEUTROPHILS % (AUTO) 67.8 % (42-78); TOTAL CELLS COUNTED % (AUTO) 100 %; WHITE BLOOD COUNT 8.5 10^3/uL (4.0-10.5)
[2018-05-09] MEDS: HEPARIN SOD (PORCINE) 5,000 UNIT/ML 1 ML SYRINGE SUBCUT SCH ×3 (05:31→21:22)
[2018-05-09 05:59] LABS: ANION GAP 9 (5-19); BLOOD UREA NITROGEN 11 mg/dL (7-20); C-REACTIVE PROTEIN 40.7 mg/L (<10.0); CALCIUM 8.9 mg/dL (8.4-10.2); CARBON DIOXIDE 28 mmol/L (22-30); CHLORIDE 98 mmol/L (98-107); GLUCOSE 131 mg/dL (75-110); SODIUM 134.6 mmol/L (137-145)
[2018-05-09 06:07] LABS: ERYTHROCYTE SEDIMENTATION RATE 37 mm/hr (0-15)
[2018-05-09] MEDS: KETOROLAC TROMETHAMINE INJ/PF 30 MG/1 ML SDV IV PRN ×3 (06:49→23:47)
[2018-05-09] MEDS ORDERED: RINGERS SOLUTION,LACTATED 1,000 ML IV PRN (07:10)
[2018-05-09] MEDS: ALLOPURINOL 100 MG TABLET PO SCH (09:49)
--- NOTE | 2018-05-09 10:16 | Physician Advisory Note ---
Physician Advisor ProgressNote .: [facility] I have reviewed the medical record for this patient. Physician Advisor Statement: Pt on oxycontin tid outpt per med rec. Please consider documenting, if you agree: 1. "Opioid dependence due to chr pain" Thanks! CK
[2018-05-09 10:53] LABS: VANCOMYCIN,TROUGH 14.7 ug/mL (5.0-20.0)
--- NOTE | 2018-05-09 11:04 | EKG REPORT ---
SEVERITY:- NORMAL ECG - SINUS RHYTHM : Confirmed by: Jose Alfredo Anders 09-May-2018 11:04:04
[2018-05-09] MEDS ORDERED: FENTANYL CITRATE INJ/PF 100 MCG/2 ML AMPUL ONE (12:20)
[2018-05-09] MEDS ORDERED: ONDANSETRON HCL INJ/PF 4 MG/2 ML SDV ONE (12:20)
[2018-05-09] MEDS ORDERED: MIDAZOLAM 2 MG/2 ML INJ ONE (12:20)
[2018-05-09] MEDS ORDERED: PROPOFOL INJ 200 MG/20 ML VIAL IV ONE (12:20)
[2018-05-09] MEDS ORDERED: DEXAMETHASONE SOD PHOSPHATE INJ 4 MG/1 ML VIAL ONE (12:20)
[2018-05-09] MEDS ORDERED: BUPIVACAINE HCL 0.5 % INJ/PF 30 ML SDV ONE (12:37)
[2018-05-09] MEDS ORDERED: LIDOCAINE 1%/EPINEPHRINE INJ 20 ML VIAL ONE (12:37)
[2018-05-09] MEDS ORDERED: DIPHENHYDRAMINE HCL 50 MG/ML VIAL IV PRN (12:46)
[2018-05-09] MEDS ORDERED: MEPERIDINE HCL/PF INJ 25 MG/1 ML DISP.SYRIN IV PRN (12:46)
[2018-05-09] MEDS ORDERED: OXYCODONE-ACETAMINOPHEN 5-325 MG TABLET PO PRN ×2 (12:46)
[2018-05-09] MEDS ORDERED: ONDANSETRON HCL INJ/PF 4 MG/2 ML SDV IV PRN (12:46)
[2018-05-09] MEDS ORDERED: PROMETHAZINE HCL INJ 25 MG/1 ML VIAL IV PRN ×2 (12:46)
[2018-05-09] MEDS ORDERED: MORPHINE SULFATE 10 MG/ML INJ IV PRN (12:46)
[2018-05-09] MEDS ORDERED: FENTANYL CITRATE INJ/PF 100 MCG/2 ML AMPUL IV PRN ×3 (12:46)
--- NOTE | 2018-05-09 13:00 | Operative Report ---
Operative Report DATE OF SURGERY: 05/09/18 PREOPERATIVE DIAGNOSIS: Left foot abscess OPERATION: Irrigation debridement left foot abscess SURGEON: MARELY FRAGOSO ANESTHESIA: LMAC TISSUE REMOVED OR ALTERED: Cultures x2 to microbiology ESTIMATED BLOOD LOSS: 25 PROCEDURE: With the patient supine Afrin table left lower extremities prepped and draped in sterile fashion. The area around the lateral aspect of the fifth left MTP joint is infiltrated with Xylocaine, Marcaine, and epinephrine. Subsequent elliptical incision is made to excise an area of non-viable tissue this is carried down to just superficial to the MTP joint. The tissue was sent for culture and sensitivity. The wound is irrigated with bulb lavage. Is packed with iodoform gauze and wrapped in a compressive dressing. The patient returned to PACU in satisfactory condition.
[2018-05-09] MEDS: HYDRALAZINE HCL INJ/PF 20 MG/1 ML SDV IV PRN (17:54)
[2018-05-09] MEDS: CEFTRIAXONE SODIUM 1,000 MG in DEXTROSE 5%-WATER 50 ML IV SCH (21:22)
[2018-05-09] MEDS ORDERED: HYDRALAZINE HCL INJ/PF 20 MG/1 ML SDV IV ONE (22:00)
--- NOTE | 2018-05-09 22:12 | PDOC PROGRESS REPORT ---
Subjective Progress Note for:: 05/09/18 Subjective:: ESHA TODD is a 47 year old male with a PMH of morbid obesity, CHF, YELENA, ETOH dependence and chronic pain. The patient was admitted for cellulitis stemming from a L lateral foot abscess. The patient was seen at [facility] 2 days ago - his wound was I&D in the ED and he was sent home with PO Bactrim. The patient returned to the ED because his pain, swelling and erythema continued to get worse despite antibiotics. The patient was admitted to the hospitalist service and Ortho Sx was consulted. MRI of L foot (-) negative for osteomyelitis. Plan for I&D of abscess with Ortho Sx today. Reason For Visit: FOOT CELLULITIS Physical Exam Vital Signs: Temp Pulse Resp BP Pulse Ox 98.5 F 74 16 180/87 H 95 05/09/18 20:15 05/09/18 20:15 05/09/18 20:15 05/09/18 20:15 05/09/18 20:15 Intake & Output 05/08/18 05/09/18 05/10/18 06:59 06:59 06:59 Intake Total 1950 2550 Output Total 0 2897 1450 Balance 0 -947 1100 Weight 135 kg 137.1 kg 137.1 kg General appearance: PRESENT: morbidly obese Head exam: PRESENT: atraumatic Eye exam: PRESENT: conjunctiva pink, PERRLA Mouth exam: PRESENT: moist, tongue midline Teeth exam: PRESENT: poor dentation Neck exam: PRESENT: full ROM Respiratory exam: PRESENT: clear to auscultation kenzie, symmetrical, unlabored Cardiovascular exam: PRESENT: +S1, +S2 Pulses: PRESENT: normal radial pulses Vascular exam: PRESENT: normal capillary refill GI/Abdominal exam: PRESENT: normal bowel sounds, soft. ABSENT: distended, tenderness Rectal exam: PRESENT: deferred Extremities exam: PRESENT: full ROM, pedal edema - L foot, +1 edema - L foot Musculoskeletal exam: PRESENT: ambulatory, full ROM Neurological exam: PRESENT: alert, awake, oriented to person, oriented to place , oriented to time, oriented to situation Psychiatric exam: PRESENT: appropriate affect Skin exam: PRESENT: dry, erythema - L foot, warm, other Adult Front & Back Image: 1 - ABSCESS Results Laboratory Results: 05/09/18 04:52 05/09/18 04:52 05/09/18 05/09/18 04:52 04:52 WBC 8.5 RBC 4.41 Hgb 13.8 Hct 39.4 MCV 89 MCH 31.3 MCHC 35.1 RDW 13.2 Plt Count 277 Seg Neutrophils % 67.8 Lymphocytes % 14.1 Monocytes % 11.6 Eosinophils % 5.7 Basophils % 0.8 Absolute Neutrophils 5.8 Absolute Lymphocytes 1.2 Absolute Monocytes 1.0 Absolute Eosinophils 0.5 Absolute Basophils 0.1 Sodium 134.6 L Potassium 5.0 Chloride 98 Carbon Dioxide 28 Anion Gap 9 BUN 11 Creatinine 0.70 Est GFR ( Amer) > 60 Est GFR (Non-Af Amer) > 60 Glucose 131 H Calcium 8.9 C-Reactive Protein 40.7 H Impressions: Lower Extremity MRI 05/08/18 00:00 IMPRESSION: No osteomyelitis. Suspect organizing abscess in the soft tissues. Foot X-Ray 05/08/18 00:47 IMPRESSION: No evidence of acute osseous injury involving the left foot. There is diffuse soft tissue swelling surrounding the left foot and ankle particularly along the dorsal aspect of the left foot. Status: Imported from PACS Assessment & Plan - Diagnosis (1) Foot abscess, left Is this a current diagnosis for this admission?: Yes Plan: L lateral foot abscess. No drainage but there appears to be multiple pus pockets. Circumfrential erythema and edema to L foot extending up LLE just below the knee. Patient is afebrile, non toxic appearing Evaluated by Dr. Morales of Ortho who recommends an MRI to evaluate for osteomyelitis. MRI (-) NEGATIVE for osteomyelitis. Continue IV Vancomycin and Rocephin Plan for I&D today with Ortho Sx (2) Cellulitis Qualifiers: Site of cellulitis: extremity Site of cellulitis of extremity: lower extremity Laterality: left Qualified Code(s): L03.116 - Cellulitis of left lower limb Is this a current diagnosis for this admission?: Yes Plan: See plan above (3) Diabetes Qualifiers: Diabetes mellitus type: type 2 Diabetes mellitus complication status: without complication Is this a current diagnosis for this admission?: Yes Plan: Patient remains relatively HYPERglycemic. Denies history of diabetes. HgbA1c 5.3 No need for insulin (4) Morbid obesity Is this a current diagnosis for this admission?: Yes Plan: BMI 46 qualifies the patient as MORBIDLY obese Requesting fruit grader operator to meet with patient to offer weight management dietary suggestions - Time Time Spent with patient: 15-24 minutes Medications reviewed and adjusted accordingly: Yes Anticipated discharge: Home Within: within 48 hours - Inpatient Certification Based on my medical assessment, after consideration of the patient's comorbidities, presenting symptoms, or acuity I expect that the services needed warrant INPATIENT care.: Yes I certify that my determination is in accordance with my understanding of Medicare's requirements for reasonable and necessary INPATIENT services [42 CFR 412.3e].: Yes Medical Necessity: Need for IV Antibiotics, Risk of Complication if Not Cared For in Hospital - Plan Summary Plan Summary: OR TODAY FOR I&D WITH ORTHO SX. CONTINUE IV ANTIBIOTICS.
[2018-05-10] MEDS: MORPHINE SULFATE 10 MG/ML INJ IV PRN ×5 (02:37→20:35)
[2018-05-10] MEDS: VANCOMYCIN HCL 1,500 MG in DEXTROSE 5%-WATER 250 ML IV SCH ×3 (02:38→17:33)
[2018-05-10 05:08] LABS: HEMATOCRIT 39.5 % (37.9-51.0); HEMOGLOBIN 14.1 g/dL (13.5-17.0); MEAN CORPUSCULAR HEMOGLOBIN 31.3 pg (27.0-33.4); MEAN CORPUSCULAR HGB CONC 35.6 g/dL (32.0-36.0); MEAN CORPUSCULAR VOLUME 88 fl (80-97); PLATELET COUNT 264 10^3/uL (150-450); RED BLOOD COUNT 4.49 10^6/uL (4.35-5.55); RED CELL DISTRIBUTION WIDTH 12.8 % (11.5-14.0); WHITE BLOOD COUNT 10.3 10^3/uL (4.0-10.5)
[2018-05-10] MEDS: KETOROLAC TROMETHAMINE INJ/PF 30 MG/1 ML SDV IV PRN ×3 (05:17→22:20)
[2018-05-10] MEDS: HEPARIN SOD (PORCINE) 5,000 UNIT/ML 1 ML SYRINGE SUBCUT SCH ×3 (05:18→22:09)
[2018-05-10 05:35] LABS: ANION GAP 11 (5-19); BLOOD UREA NITROGEN 10 mg/dL (7-20); CALCIUM 9.5 mg/dL (8.4-10.2); CARBON DIOXIDE 26 mmol/L (22-30); CHLORIDE 95 mmol/L (98-107); PHOSPHORUS 3.2 mg/dL (2.5-4.5); SODIUM 132.1 mmol/L (137-145)
[2018-05-10 05:36] LABS: GLUCOSE 271 mg/dL (75-110)
--- NOTE | 2018-05-10 06:05 | PDOC PROGRESS REPORT ---
Subjective Progress Note for:: 05/10/18 Reason For Visit: FOOT CELLULITIS 47-year-old white male postop day 1 status post I&D of a left foot necrotic region. Patient reports significant clinical improvement from yesterday. Physical Exam Vital Signs: Temp Pulse Resp BP Pulse Ox 36.5 C 76 16 136/78 H 94 05/10/18 04:00 05/10/18 04:00 05/10/18 04:00 05/10/18 04:00 05/10/18 04:00 Intake & Output 05/08/18 05/09/18 05/10/18 06:59 06:59 06:59 Intake Total 1950 2800 Output Total 0 2897 2150 Balance 0 -947 650 Weight 135 kg 137.1 kg 137.1 kg General appearance: PRESENT: no acute distress, obese Head exam: PRESENT: normocephalic Respiratory exam: PRESENT: unlabored Cardiovascular exam: PRESENT: RRR Vascular exam: PRESENT: normal capillary refill Extremities exam: PRESENT: other - Left foot dressing clean dry and intact. Distal neurovascular examination to the toes is intact. Brisk capillary refill. Neurological exam: PRESENT: alert, awake, oriented to person, oriented to place , oriented to time, oriented to situation. ABSENT: motor sensory deficit Psychiatric exam: PRESENT: appropriate affect, normal mood. ABSENT: homicidal ideation, suicidal ideation Results Laboratory Results: 05/10/18 04:42 05/10/18 04:42 05/09/18 05/10/18 05/10/18 04:52 04:42 04:42 WBC 10.3 RBC 4.49 Hgb 14.1 Hct 39.5 MCV 88 MCH 31.3 MCHC 35.6 RDW 12.8 Plt Count 264 Sodium 134.6 L 132.1 L Potassium 5.0 5.0 Chloride 98 95 L Carbon Dioxide 28 26 Anion Gap 9 11 BUN 11 10 Creatinine 0.70 0.58 Est GFR ( Amer) > 60 > 60 Est GFR (Non-Af Amer) > 60 > 60 Glucose 131 H 271 H Calcium 8.9 9.5 Phosphorus 3.2 Magnesium 2.1 C-Reactive Protein 40.7 H Impressions: Lower Extremity MRI 05/08/18 00:00 IMPRESSION: No osteomyelitis. Suspect organizing abscess in the soft tissues. Foot X-Ray 05/08/18 00:47 IMPRESSION: No evidence of acute osseous injury involving the left foot. There is diffuse soft tissue swelling surrounding the left foot and ankle particularly along the dorsal aspect of the left foot. Status: Imported from PACS Assessment & Plan - Diagnosis (1) Foot abscess, left Is this a current diagnosis for this admission?: Yes Plan: Patient status post I&D now with iodoform packing in place. Plan will be for continued IV antibiotic administration and this can be adjusted pending intraoperative cultures. Plan on taking down the dressing tomorrow and beginning wet-to-dry dressing changes. - Time Time Spent with patient: 15-24 minutes Anticipated discharge: Other Within: Other
[2018-05-10] MEDS: HYDRALAZINE HCL INJ/PF 20 MG/1 ML SDV IV PRN (08:08)
[2018-05-10] MEDS: ALLOPURINOL 100 MG TABLET PO SCH (10:05)
--- NOTE | 2018-05-10 20:43 | PDOC PROGRESS REPORT ---
Subjective Progress Note for:: 05/10/18 Subjective:: ESHA TODD is a 47 year old male with a PMH of morbid obesity, CHF, YELENA, ETOH dependence and chronic pain. The patient was admitted for cellulitis stemming from a L lateral foot abscess. The patient was seen at [facility] 2 days ago - his wound was I&D in the ED and he was sent home with PO Bactrim. The patient returned to the ED because his pain, swelling and erythema continued to get worse despite antibiotics. The patient was admitted to the hospitalist service and Ortho Sx was consulted. The patient is POD#1 I&D of L foot abscess. (+) removal of necrotic tissue. Wound cultures pending. Patient remains afebrile and nontoxic appearing. He has no complaints this morning. Nursing staff has no concerns. Plan to continue broad spectrum antibiotics. Wound cultures pending. Reason For Visit: FOOT CELLULITIS Physical Exam Vital Signs: Temp Pulse Resp BP Pulse Ox 98.0 F 70 20 154/101 H 96 05/10/18 16:00 05/10/18 16:00 05/10/18 16:00 05/10/18 16:00 05/10/18 16:00 Intake & Output 05/09/18 05/10/18 05/11/18 06:59 06:59 06:59 Intake Total 1950 3400 1994 Output Total 2897 2150 1500 Balance -947 1250 495 Weight 137.1 kg 147.8 kg General appearance: PRESENT: morbidly obese Head exam: PRESENT: atraumatic Eye exam: PRESENT: conjunctiva pink, PERRLA Mouth exam: PRESENT: moist, tongue midline Teeth exam: PRESENT: poor dentation Neck exam: PRESENT: full ROM Respiratory exam: PRESENT: clear to auscultation kenzie, symmetrical, unlabored Cardiovascular exam: PRESENT: +S1, +S2 Pulses: PRESENT: normal radial pulses, normal dorsalis pedis pul GI/Abdominal exam: PRESENT: normal bowel sounds, soft. ABSENT: distended, tenderness Rectal exam: PRESENT: deferred Extremities exam: PRESENT: pedal edema - LEFT FOOT Musculoskeletal exam: PRESENT: normal inspection Neurological exam: PRESENT: alert, awake, oriented to person, oriented to place , oriented to time, oriented to situation Psychiatric exam: PRESENT: appropriate affect Skin exam: PRESENT: dry, intact, other - LEFT FOOT ERYTHEMA. CURRENTLY WRAPPED IN VLAD BANDAGE BY ORTHO SX Results Laboratory Results: 05/10/18 04:42 05/10/18 04:42 05/10/18 05/10/18 04:42 04:42 WBC 10.3 RBC 4.49 Hgb 14.1 Hct 39.5 MCV 88 MCH 31.3 MCHC 35.6 RDW 12.8 Plt Count 264 Sodium 132.1 L Potassium 5.0 Chloride 95 L Carbon Dioxide 26 Anion Gap 11 BUN 10 Creatinine 0.58 Est GFR ( Amer) > 60 Est GFR (Non-Af Amer) > 60 Glucose 271 H Calcium 9.5 Phosphorus 3.2 Magnesium 2.1 Impressions: Lower Extremity MRI 05/08/18 00:00 IMPRESSION: No osteomyelitis. Suspect organizing abscess in the soft tissues. Foot X-Ray 05/08/18 00:47 IMPRESSION: No evidence of acute osseous injury involving the left foot. There is diffuse soft tissue swelling surrounding the left foot and ankle particularly along the dorsal aspect of the left foot. Status: Imported from PACS Assessment & Plan - Diagnosis (1) Foot abscess, left Is this a current diagnosis for this admission?: Yes Plan: POD#1 I&D of L lateral foot abscess. Wound cultures pending Circumfrential erythema and edema to L foot extending up LLE just below the knee. Patient is afebrile, non toxic appearing MRI to evaluate for osteomyelitis was (-) NEGATIVE Continue IV Vancomycin and Rocephin (2) Cellulitis Qualifiers: Site of cellulitis: extremity Site of cellulitis of extremity: lower extremity Laterality: left Qualified Code(s): L03.116 - Cellulitis of left lower limb Is this a current diagnosis for this admission?: Yes Plan: See plan above (3) Diabetes Qualifiers: Diabetes mellitus type: type 2 Diabetes mellitus complication status: without complication Is this a current diagnosis for this admission?: Yes Plan: Patient remains relatively HYPERglycemic. Denies history of diabetes. 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 given the patient's history of HTN Unfortunately, the patient refuses to eat a cardiac diet - Time Time Spent with patient: 15-24 minutes Medications reviewed and adjusted accordingly: Yes Anticipated discharge: Home Within: within 72 hours - Inpatient Certification Based on my medical assessment, after consideration of the patient's comorbidities, presenting symptoms, or acuity I expect that the services needed warrant INPATIENT care.: Yes I certify that my determination is in accordance with my understanding of Medicare's requirements for reasonable and necessary INPATIENT services [42 CFR 412.3e].: Yes Medical Necessity: Need for IV Antibiotics - Plan Summary Plan Summary: WAITING FOR WOUND CULTURES. CONTINUE IV ABX.
[2018-05-10] MEDS: CEFTRIAXONE SODIUM 1,000 MG in DEXTROSE 5%-WATER 50 ML IV SCH (22:10)
[2018-05-11] MEDS: HYDRALAZINE HCL INJ/PF 20 MG/1 ML SDV IV PRN (01:04)
[2018-05-11] MEDS: MORPHINE SULFATE 10 MG/ML INJ IV PRN ×4 (01:04→18:25)
[2018-05-11] MEDS: VANCOMYCIN HCL 1,500 MG in DEXTROSE 5%-WATER 250 ML IV SCH ×2 (01:05→09:53)
[2018-05-11] MEDS: KETOROLAC TROMETHAMINE INJ/PF 30 MG/1 ML SDV IV PRN ×3 (04:56→21:26)
[2018-05-11 05:01] LABS: HEMATOCRIT 38.3 % (37.9-51.0); HEMOGLOBIN 13.4 g/dL (13.5-17.0); MEAN CORPUSCULAR HEMOGLOBIN 30.9 pg (27.0-33.4); MEAN CORPUSCULAR HGB CONC 35.2 g/dL (32.0-36.0); MEAN CORPUSCULAR VOLUME 88 fl (80-97); PLATELET COUNT 270 10^3/uL (150-450); RED BLOOD COUNT 4.36 10^6/uL (4.35-5.55); RED CELL DISTRIBUTION WIDTH 13.1 % (11.5-14.0)
[2018-05-11] MEDS: HEPARIN SOD (PORCINE) 5,000 UNIT/ML 1 ML SYRINGE SUBCUT SCH ×3 (05:02→21:27)
[2018-05-11 05:26] LABS: ANION GAP 10 (5-19); BLOOD UREA NITROGEN 12 mg/dL (7-20); CALCIUM 8.7 mg/dL (8.4-10.2); CARBON DIOXIDE 27 mmol/L (22-30); CHLORIDE 97 mmol/L (98-107); GLUCOSE 183 mg/dL (75-110); PHOSPHORUS 4.2 mg/dL (2.5-4.5); POTASSIUM 4.4 mmol/L (3.6-5.0)
--- NOTE | 2018-05-11 07:29 | PDOC PROGRESS REPORT ---
Subjective Progress Note for:: 05/11/18 Reason For Visit: FOOT CELLULITIS 47-year-old white male status post I&D of a left foot abscess with no new complaints. Overall clinical improvement reported by the patient except the dressing was cutting into his foot so this is been released. Cultures are growing gram-positive cocci in clusters presumed staph. Physical Exam Vital Signs: Temp Pulse Resp BP Pulse Ox 36.3 C 70 18 149/92 H 98 05/11/18 02:51 05/11/18 02:51 05/11/18 02:51 05/11/18 02:51 05/11/18 02:51 Intake & Output 05/10/18 05/11/18 05/12/18 06:59 06:59 06:59 Intake Total 3400 3872 Output Total 2150 4050 Balance 1250 -178 Weight 147.8 kg 144.5 kg General appearance: PRESENT: no acute distress, obese Vascular exam: PRESENT: normal capillary refill Musculoskeletal exam: PRESENT: other - Left foot dressing with some serosanguineous drainage. Distal neurovascular examination is intact to the toes. Neurological exam: PRESENT: alert, awake, oriented to person, oriented to place , oriented to time, oriented to situation. ABSENT: motor sensory deficit Results Laboratory Results: 05/11/18 04:15 05/11/18 04:15 05/11/18 05/11/18 04:15 04:15 WBC 10.0 RBC 4.36 Hgb 13.4 L Hct 38.3 MCV 88 MCH 30.9 MCHC 35.2 RDW 13.1 Plt Count 270 Sodium 134.0 L Potassium 4.4 Chloride 97 L Carbon Dioxide 27 Anion Gap 10 BUN 12 Creatinine 0.63 Est GFR ( Amer) > 60 Est GFR (Non-Af Amer) > 60 Glucose 183 H Calcium 8.7 Phosphorus 4.2 Magnesium 2.1 Impressions: Lower Extremity MRI 05/08/18 00:00 IMPRESSION: No osteomyelitis. Suspect organizing abscess in the soft tissues. Foot X-Ray 05/08/18 00:47 IMPRESSION: No evidence of acute osseous injury involving the left foot. There is diffuse soft tissue swelling surrounding the left foot and ankle particularly along the dorsal aspect of the left foot. Status: Imported from PACS Assessment & Plan - Diagnosis (1) Foot abscess, left Is this a current diagnosis for this admission?: Yes Plan: Plan to start wet-to-dry dressing changes today. Await final culture results and sensitivities for antibiotic selection. - Time Time Spent with patient: 15-24 minutes Anticipated discharge: Home with Homehealth Within: Other
[2018-05-11] MEDS: ALLOPURINOL 100 MG TABLET PO SCH (09:53)
[2018-05-11] MEDS ORDERED: VANCOMYCIN HCL 0 MG in DEXTROSE 5%-WATER 250 ML IV NR (11:00)
--- NOTE | 2018-05-11 12:41 | PDOC PROGRESS REPORT ---
Subjective Progress Note for:: 05/11/18 Subjective:: ESHA TODD is a 47 year old male with a PMH of morbid obesity, CHF, YELENA, ETOH dependence and chronic pain. The patient was admitted for cellulitis stemming from a L lateral foot abscess. The patient was seen at [facility] 2 days ago - his wound was I&D in the ED and he was sent home with PO Bactrim. The patient returned to the ED because his pain, swelling and erythema continued to get worse despite antibiotics. The patient was admitted to the hospitalist service and Ortho Sx was consulted. The patient is POD#2 I&D of L foot abscess. (+) MRSA in wound cultures. Patient remains afebrile and nontoxic appearing. He has no complaints this morning. Nursing staff has no concerns. Cultures and Sensitivities reveal that Vancomycin RUI is 2, Daptomycin RUI is 0.5. Discontinued Vancomycin and Rocephin this morning and initiated Daptomycin. Plan to consult ID regarding length of treatment. Patient may require outpatient IV antibiotic infusions. Reason For Visit: FOOT CELLULITIS Physical Exam Vital Signs: Temp Pulse Resp BP Pulse Ox 97.8 F 74 18 137/82 H 97 05/11/18 07:22 05/11/18 07:22 05/11/18 07:22 05/11/18 07:22 05/11/18 07:22 Intake & Output 05/10/18 05/11/18 05/12/18 06:59 06:59 06:59 Intake Total 3400 3872 1100 Output Total 2150 4050 900 Balance 1250 -178 200 Weight 147.8 kg 144.5 kg General appearance: PRESENT: morbidly obese Eye exam: PRESENT: conjunctiva pink, PERRLA Mouth exam: PRESENT: moist, tongue midline Neck exam: PRESENT: full ROM Respiratory exam: PRESENT: clear to auscultation kenzie, symmetrical, unlabored Cardiovascular exam: PRESENT: RRR, +S1, +S2 Pulses: PRESENT: normal radial pulses, normal dorsalis pedis pul GI/Abdominal exam: PRESENT: normal bowel sounds, soft. ABSENT: distended, tenderness Rectal exam: PRESENT: deferred Extremities exam: PRESENT: full ROM, pedal edema - R FOOT, +1 edema - R FOOT Musculoskeletal exam: PRESENT: ambulatory, full ROM. ABSENT: normal inspection Neurological exam: PRESENT: alert, awake, oriented to person, oriented to place , oriented to time, oriented to situation Psychiatric exam: PRESENT: appropriate affect Skin exam: PRESENT: dry, intact, normal color, warm Results Laboratory Results: 05/11/18 04:15 05/11/18 04:15 05/11/18 05/11/18 04:15 04:15 WBC 10.0 RBC 4.36 Hgb 13.4 L Hct 38.3 MCV 88 MCH 30.9 MCHC 35.2 RDW 13.1 Plt Count 270 Sodium 134.0 L Potassium 4.4 Chloride 97 L Carbon Dioxide 27 Anion Gap 10 BUN 12 Creatinine 0.63 Est GFR ( Amer) > 60 Est GFR (Non-Af Amer) > 60 Glucose 183 H Calcium 8.7 Phosphorus 4.2 Magnesium 2.1 Impressions: Lower Extremity MRI 05/08/18 00:00 IMPRESSION: No osteomyelitis. Suspect organizing abscess in the soft tissues. Foot X-Ray 05/08/18 00:47 IMPRESSION: No evidence of acute osseous injury involving the left foot. There is diffuse soft tissue swelling surrounding the left foot and ankle particularly along the dorsal aspect of the left foot. Status: Imported from PACS Assessment & Plan - Diagnosis (1) Foot abscess, left Is this a current diagnosis for this admission?: Yes Plan: POD#2 I&D of L lateral foot abscess. Wound cultures (+) MRSA Based on C&S Vancomycin RUI 2, Daptomycin RUI 0.5. Discontinue vancomycin and Rocephin, initiate daptomycin 600 mg daily ( increased dose due to obesity) Circumfrential erythema and edema to L foot has greatly improved Patient is afebrile, non toxic appearing MRI to evaluate for osteomyelitis was (-) NEGATIVE Consulted ID regarding length of treatment. Patient may need outpatient IV antibiotics. (2) Cellulitis Qualifiers: Site of cellulitis: extremity Site of cellulitis of extremity: lower extremity Laterality: left Qualified Code(s): L03.116 - Cellulitis of left lower limb Is this a current diagnosis for this admission?: Yes Plan: See plan above (3) Diabetes Qualifiers: Diabetes mellitus type: type 2 Diabetes mellitus complication status: without complication Is this a current diagnosis for this admission?: Yes Plan: Patient remains relatively HYPERglycemic. Denies history of diabetes. 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 recommends cardiac diet given the patient's history of HTN Unfortunately, the patient refuses to eat a cardiac diet - Time Time Spent with patient: 15-24 minutes Medications reviewed and adjusted accordingly: Yes Anticipated discharge: Home Within: within 48 hours - Inpatient Certification Based on my medical assessment, after consideration of the patient's comorbidities, presenting symptoms, or acuity I expect that the services needed warrant INPATIENT care.: Yes I certify that my determination is in accordance with my understanding of Medicare's requirements for reasonable and necessary INPATIENT services [42 CFR 412.3e].: Yes Medical Necessity: Need for IV Antibiotics - Plan Summary Plan Summary: Discontinue vancomycin and Rocephin, initiate daptomycin. Awaiting recommendations from infectious disease MD regarding length of treatment. Continue daily dressing changes per Ortho Surgery
[2018-05-11] MEDS ORDERED: DAPTOMYCIN 600 MG in NORMAL SALINE 50 ML IV SCH (13:00)
--- NOTE | 2018-05-11 16:54 | Progress Note ---
Provider Note Provider Note: ID Consult Note Asked to review patient's chart and provide antibiotic management recommendations by Kiara Villatoro NP. Pt not seen or examined. Mr Dave is a morbidly obese man with PMH including former tobacco use, GERD, gout and HTN who presented to the [facility] ED on 05/07 with L foot pain. He had started Keflex 500 mg QID and 1 PO DS Bactrim BID on 05/06/18 but experienced worsening with increased pain, erythema and warmth. He denied fever or chills. On exam , pt had no fever or tachycardia, but he was appreciated to have soft issue swelling over the lateral foot with erythema spreading up the distal leg and a small amount of purulent material expressed. ROM was normal at the ankle and knee. CBC showed leukocytosis to 13.7k. Rocephin and vancomycin were initiated. Plain films of the foot showed no worrisome bone lesions, advanced osteoarthritis at 1st MTP, no fx or dislocation, and a BB in the plantar soft tissues near the 5th metatarsal head. MRI of the foot showed no evidence for osteomyelitis. Fluid was seen along the distal 5th metatarsal laterally to the level of the MTP joint without a discrete capsule, suspected to represent an organizing abscess. ESR on 05/09 was 37. CRP was 40.7. On 05/09/18 he was taken to the OR for debridement of L foot abscess with nonviable tissue excise down to just superficial to the MTP joint. Intraoperative cx were taken. MRSA has grown from the culture labeled as being from the foot more superficially and from the deep foot wound GPCs are reported preliminarily. The MRSA has an elevated RUI to vancomycin of 2, is susceptible to Bactrim, tetracycline, daptomycin and clindamycin; the isolate is resistant to erythromycin. No anaerobes were isolated. Pt has remained afebrile. WBC count has normalized. According to most recent note from his surgeon , pt has had overall clinical improvement and reported no complaints to the hospitalist service. Based on susceptibility report, vancomycin and Rocephin were discontinued and daptomycin was started at 600 mg daily IV. Impression/Recommendations L foot abscess and purulent cellulitis due to MRSA - Pt has had appropriate source control for the abscess with I&D performed on - For the surrounding cellulitis, pt does not necessarily need to continue IV daptomycin or IV vancomycin for the entire duration of therapy. Pt can continue IV daptomycin until he has shown sufficient improvement that outpatient discharge is being considered. At that point, the patient can be switched to PO therapy. - Total duration of antibiotis depends on the severity of the infection and how slow the patient is to respond and generally is in the range of 5-14 days. Based on the severity of his infection, he may need treatment at the longer end of this range - perhaps 14 days in total. Treatment duration should be individualized based on how rapidly the patient is improving. - When pt is ready for discharge home and switch to an oral antibiotic, linezolid 600 mg PO BID would be a good option. The patient's MRSA isolate is susceptible to linezolid (called Micro lab to confirm). It has good oral bioavailability, but it may be expensive. Please consult case management to see if there are patient assistance programs that might be used to defray cost, if needed. If the patient completes therapy with linezolid as an outpatient, he should be instructed not to start taking his home medication Lyrica until he has finished the course of linezolid to avoid a drug-drug interaction that could potentially lead to serotonin syndrome. - If linezolid is not possible due to cost, clindamycin PO 450 mg PO TID could be considered but might be limited by GI upset and the increased risk for C difficile diarrhea with clindamycin. Doxycycline 100 mg BID PO is also another option, but information about dose adjustment with morbid obesity is less defined for this. Caesar Petit MD [facility] Infectious Diseases pager [phone]
[2018-05-12] MEDS ORDERED: PREGABALIN 50 MG CAPSULE PO ONE (01:00)
[2018-05-12] MEDS: MORPHINE SULFATE 10 MG/ML INJ IV PRN ×3 (01:09→09:54)
[2018-05-12] MEDS: HEPARIN SOD (PORCINE) 5,000 UNIT/ML 1 ML SYRINGE SUBCUT SCH (05:13)
[2018-05-12 05:59] LABS: HEMATOCRIT 40.7 % (37.9-51.0); HEMOGLOBIN 14.1 g/dL (13.5-17.0); MEAN CORPUSCULAR HEMOGLOBIN 30.9 pg (27.0-33.4); MEAN CORPUSCULAR HGB CONC 34.5 g/dL (32.0-36.0); MEAN CORPUSCULAR VOLUME 89 fl (80-97); PLATELET COUNT 254 10^3/uL (150-450); RED BLOOD COUNT 4.56 10^6/uL (4.35-5.55); RED CELL DISTRIBUTION WIDTH 13.3 % (11.5-14.0)
[2018-05-12] MEDS ORDERED: PREGABALIN 50 MG CAPSULE PO SCH (06:00)
[2018-05-12 06:26] LABS: ANION GAP 8 (5-19); BLOOD UREA NITROGEN 14 mg/dL (7-20); CALCIUM 8.9 mg/dL (8.4-10.2); CARBON DIOXIDE 29 mmol/L (22-30); CHLORIDE 100 mmol/L (98-107); GLUCOSE 105 mg/dL (75-110); PHOSPHORUS 5.7 mg/dL (2.5-4.5); POTASSIUM 4.6 mmol/L (3.6-5.0)
[2018-05-12 07:54] VITALS: BP 155/90
[2018-05-12] MEDS: ALLOPURINOL 100 MG TABLET PO SCH (09:55)
[2018-05-12] MEDS ORDERED: FUROSEMIDE 40 MG TABLET PO SCH (10:00)
[2018-05-12] MEDS ORDERED: DAPTOMYCIN 600 MG in NORMAL SALINE 50 ML IV ONE (11:00)
--- NOTE | 2018-05-13 13:13 | PDOC DISCHARGE SUMMARY ---
General - Admit/Disc Date/PCP Admission Date/Primary Care Provider: 05/08/18 01:40 LORIE GRACE MD Discharge Date: 05/12/18 - Discharge Diagnosis (1) Foot abscess, left Is this a current diagnosis for this admission?: Yes (2) Cellulitis Is this a current diagnosis for this admission?: Yes (3) Diabetes Is this a current diagnosis for this admission?: Yes (4) Morbid obesity Is this a current diagnosis for this admission?: Yes - Additional Information Resuscitation Status: Full Code Discharge Diet: As Tolerated Discharge Activity: Activity As Tolerated Prescriptions: Linezolid 600 mg PO BID 14 Days #28 tablet Home Medications: Allopurinol [Zyloprim 100 mg Tablet] 100 mg PO DAILY 05/08/18 Cyanocobalamin (Vitamin B-12) [Vitamin B12] 2,500 mcg PO DAILY 05/08/18 Dextroamphetamine/Amphetamine [Dextroamp-Amphetamin 20 mg Tab] 40 mg PO DAILY@ 1400 05/08/18 Dextroamphetamine/Amphetamine [Dextroamp-Amphetamin 30 mg Tab] 30 mg PO ACBRKFST 05/08/18 Furosemide [Lasix 40 mg Tablet] 40 mg PO BID 05/08/18 Oxycodone HCl 30 mg PO Q8 05/08/18 Oxycodone HCl/Acetaminophen [Endocet 10-325 mg Tablet] 1 tab PO Q8HP PRN Pregabalin [Lyrica 50 mg Capsule] 50 mg PO Q8 05/08/18 Allopurinol [Zyloprim 100 mg Tablet] 100 mg PO DAILY tablet 05/12/18 Linezolid 600 mg PO BID 14 Days #28 tablet 05/12/18 History of Present Illness Patient complains of: L FOOT PAIN AND SWELLING History of Present Illness: ESHA TODD is a 47 year old male with a past medical history of morbid obesity, congestive heart failure, obstructive sleep apnea, alcohol dependence and chronic pain. Patient presents 2 days after a I&D of the left lateral foot abscess in the emergency room for which she was placed on Bactrim. Patient is noted marketed worsening with swelling and pain prompting reevaluation. He is found to have fluctuance, leukocytosis and circumferential erythema of the lower leg. He started on empiric antibiotics and referred to the hospitalist for admission. Hospital Course Hospital Course: ESHA TODD is a 47 year old male with a PMH of morbid obesity, CHF, YELENA, ETOH dependence and chronic pain. The patient was admitted for cellulitis stemming from a L lateral foot abscess. The patient was seen at [facility] MAY. 2017 - his wound was I&D in the ED and he was sent home with PO Bactrim. The patient returned to the ED 2017 because his pain, swelling and erythema continued to get worse despite antibiotics. The patient was admitted to the hospitalist service and orthopedic surgery was consulted. The patient was empirically placed on Rocephin and vancomycin IV. The patient underwent I&D of L foot abscess. The procedure was performed by Dr. Walton, orthopedic surgeon. (+) MRSA in wound cultures. Cultures and Sensitivities revealed that Vancomycin RUI is 2, Daptomycin RUI is 0.5. Discontinued Vancomycin and Rocephin and initiated Daptomycin. Infectious Disease was consulted regarding the duration of treatment, Dr. Petit recommended 14 days of PO linezolid. Following 4 days in the hospital, the decision was made to discharge patient home. He remained afebrile and nontoxic-appearing throughout his hospitalization and his vital signs were all stable. He was sent home with a prescription for 14 days of PO linezolid and instructions to follow-up with his primary care physician following his course of antibiotics. The patient was also instructed to follow-up with Dr. Walton within 1-2 weeks of discharge. Additionally, discharge planning assisted with the coordination of home health to assist the patient with wet-to-dry L foot dressing changes. The patient verbalized understanding of all discharge instructions. For any further information regarding this patient's hospitalization, please refer to the EMR. Physical Exam Vital Signs: Temp Pulse Resp BP Pulse Ox 98.2 F 66 20 155/90 H 95 05/12/18 11:05 05/12/18 11:05 05/12/18 11:05 05/12/18 11:05 05/12/18 11:05 Intake & Output 05/12/18 05/13/18 05/14/18 06:59 06:59 06:59 Intake Total 2766 50 Output Total 2500 Balance 266 50 Weight 146.1 kg Results Laboratory Results: 05/12/18 04:56 05/12/18 04:56 05/09/18 12:50 Foot - Deep Wound Gram Stain - Final 05/09/18 12:50 Foot - Deep Wound Wound Culture - Final Mrsa (Meth Resis Staph Aureus) Impressions: Lower Extremity MRI 05/08/18 00:00 IMPRESSION: No osteomyelitis. Suspect organizing abscess in the soft tissues. Foot X-Ray 05/08/18 00:47 IMPRESSION: No evidence of acute osseous injury involving the left foot. There is diffuse soft tissue swelling surrounding the left foot and ankle particularly along the dorsal aspect of the left foot. Status: Imported from PACS Qualifiers - * PATIENT BEING DISCHARGED WITH ANY OF THE FOLLOWING DIAGNOSIS: No Plan Discharge Plan: Discharge home with p.o. linezolid and home health. Follow-up with PCP and orthopedic surgery within 1-2 weeks of discharge from [facility] Time Spent: Less than 30 Minutes
== END 2018-05-12 11:40 | disposition home health service (06) | DRG 603 ==
LOC: ER 19:35 → EH 05-08 01:40 → 3N 05-08 04:14
PROVIDERS: ADMIT Internal Medicine; ATTEND Internal Medicine
PROC: 0H9NXZZ Drainage of Left Foot Skin, External Approach (ICD-10-PCS; 2018-05-08)
PROC: 0HDNXZZ Extraction of Left Foot Skin, External Approach (ICD-10-PCS; principal; 2018-05-09 12:15)
DX: L03.116 Cellulitis of left lower limb (principal); L02.612 Cutaneous abscess of left foot; Z68.42 Body mass index [BMI] 45.0-49.9, adult; B95.62 Methicillin resistant Staphylococcus aureus infection as the cause of diseases classified elsewhere; I50.9 Heart failure, unspecified; I11.0 Hypertensive heart disease with heart failure; M79.672 Pain in left foot; K21.9 Gastro-esophageal reflux disease without esophagitis; J44.9 Chronic obstructive pulmonary disease, unspecified; F10.20 Alcohol dependence, uncomplicated; F41.8 Other specified anxiety disorders; E66.01 Morbid (severe) obesity due to excess calories; Y90.9 Presence of alcohol in blood, level not specified; Z87.891 Personal history of nicotine dependence
CPT/HCPCS: 01470; 36415; 80048; 80202; 83036; 83735; 84100; 85025; 85027; 85652; 86140; 87070; 87075; 87077; 87186; 87205; 90686; 93005; 93010; 94660; 96365; 96368; 96375; 99285; A6266; J0360; J0696; J0878; J1100; J1644; J1885; J2250; J2270; J2405; J2704; J3010; J3370; J3490; J7060

== ENCOUNTER 2019-05-17 10:07 | Day surgery (SDC) | payer MEDICARE, OTHER ==
[2019-05-17] MEDS ORDERED: ALBUTEROL SULFATE 0.083% NEB 2.5 MG/3 ML AMPUL NEB ONE (10:21)
[2019-05-17] MEDS ORDERED: PROPOFOL INJ 200 MG/20 ML VIAL IV ONE (11:17)
[2019-05-17 11:35] VITALS: BP 170/114
--- NOTE | 2019-05-17 11:56 | Operative Report ---
Operative Report DATE OF SURGERY: 05/17/19 Operative Report: The risks, benefits and alternatives of the procedure including the risk of bleeding, perforation requiring surgery have been explained to the patient in detail and informed consent has been obtained. Patient is taken back to the endoscopy suite and placed in the left, lateral decubital position. Timeout was called. Propofol medication is administered. Rectal examination is done which did not reveal any masses, tears or fissures. An Olympus videoscope was introduced into the patient's rectum. Scope was then carefully advanced all the way to the cecum. The cecum was identified by the usual anatomical landmarks including the ileocecal valve as well as the appendiceal office. Photodocumentation is obtained. Scope was then sequentially pulled back via the various segments of the colon including the ascending colon, hepatic flexure, transverse colon, splenic flexure, descending colon finding to the rectosigmoid portions of the colon. Retroflexion maneuvers performed. PREOPERATIVE DIAGNOSIS: Personal history of polyp POSTOPERATIVE DIAGNOSIS: Cecal polyp status post biopsy. Calcified lesion again noted at the tip of hemorrhoid likely a skin tag; will refer to surgery OPERATION: Colonoscopy with biopsy SURGEON: DAHLIA LIAO ANESTHESIA: LMAC TISSUE REMOVED OR ALTERED: As noted above. COMPLICATIONS: None. ESTIMATED BLOOD LOSS: None. INTRAOPERATIVE FINDINGS: As noted above. PROCEDURE: Patient tolerated the procedure well. No immediate postprocedure complications are noted. Patient is discharged in good condition. Discharge date 05/17/2019. Discharge diet: Regular. Discharge activity: Regular. 2 to 3-week follow-up to discuss findings. 5-year surveillance colonoscopy. Patient is instructed to call the office or proceed to the emergency room should there be any further questions. Referral to surgery will be made.
== END 2019-05-17 11:36 | disposition home or self-care (01) ==
LOC: END 10:07
PROVIDERS: ATTEND Internal Medicine Gastroenterology
DX: Z12.11 Encounter for screening for malignant neoplasm of colon (principal); K52.9 Noninfective gastroenteritis and colitis, unspecified; D12.0 Benign neoplasm of cecum; Z86.010 Personal history of colon polyps; Z85.038 Personal history of other malignant neoplasm of large intestine; I10 Essential (primary) hypertension; E11.9 Type 2 diabetes mellitus without complications; K42.9 Umbilical hernia without obstruction or gangrene; M10.9 Gout, unspecified; G47.30 Sleep apnea, unspecified; K21.9 Gastro-esophageal reflux disease without esophagitis; E66.9 Obesity, unspecified; Z79.84 Long term (current) use of oral hypoglycemic drugs; Z79.899 Other long term (current) drug therapy; Z86.14 Personal history of Methicillin resistant Staphylococcus aureus infection; Z87.891 Personal history of nicotine dependence; Z79.82 Long term (current) use of aspirin; Z68.42 Body mass index [BMI] 45.0-49.9, adult
CPT/HCPCS: 45380; 82962; 88305 ×2; 94640; 00812; J2704; A9270; 812

== ENCOUNTER 2020-03-15 21:01 | Emergency (ER) | payer MEDICARE, OTHER ==
--- NOTE | 2020-03-15 22:20 | ER Document Report ---
ED Medical Screen (RME) - General Chief Complaint: Shortness Of Breath Stated Complaint: SHORT OF BREATH / SWELLING Time Seen by Provider: 03/15/20 22:15 Primary Care Provider: LORIE GRACE MD [Primary Care Provider] - Follow up as needed Mode of Arrival: Wheelchair Information source: Patient Notes: HPI; 49-year-old male presents to the emergency room complaining of worsening shortness of breath, chest pain, and leg swelling for the past 10 days. History of COPD. No recent travel. No COVID-19 exposure. PE: Alert and oriented x3. Moderate distress noted. Lungs diminished with bibasilar rales. Heart: Regular rate rhythm without murmurs, rubs, gallops. Unable to do full exam in triage. I have greeted and performed a rapid initial assessment of this patient. A comprehensive ED assessment and evaluation of the patient, analysis of test results and completion of the medical decision making process will be conducted by additional ED providers. I have specifically instructed the patient or family members with the patient to immediately return to any nursing staff should anything change in the patient's condition or with their chief complaint. TRAVEL OUTSIDE OF THE [place] IN LAST 30 DAYS: No - Related Data Allergies/Adverse Reactions: No Known Allergies Allergy (Verified 05/06/18 00:55) Past Medical History - Past Medical History Cardiac Medical History: Reports: Hx Congestive Heart Failure - Unknown ejection fraction, Hx Hypertension Denies: Hx Coronary Artery Disease, Hx Heart Attack Pulmonary Medical History: Reports: Hx COPD, Hx Sleep Apnea Denies: Hx Asthma, Hx Bronchitis, Hx Pneumonia Neurological Medical History: Denies: Hx Cerebrovascular Accident, Hx Seizures Renal/ Medical History: Denies: Hx Peritoneal Dialysis GI Medical History: Reports: Hx Gastroesophageal Reflux Disease Musculoskeltal Medical History: Reports Hx Arthritis Psychiatric Medical History: Reports: Hx Depression - anxiety Past Surgical History: Reports: Hx Orthopedic Surgery - shoulder - Immunizations Hx Diphtheria, Pertussis, Tetanus Vaccination: Yes Physical Exam - Vital signs Vitals: Temp Pulse Resp BP Pulse Ox 98.8 F 80 21 H 135/81 H 94 03/15/20 21:28 03/15/20 21:28 03/15/20 21:28 03/15/20 21:28 03/15/20 21:28 Course - Vital Signs Vital signs: Temp Pulse Resp BP Pulse Ox 98.8 F 80 21 H 135/81 H 94 03/15/20 21:28 03/15/20 21:28 03/15/20 21:28 03/15/20 21:28 03/15/20 21:28 Doctor's Discharge - Discharge Referrals: LORIE GRACE MD [Primary Care Provider] - Follow up as needed
--- NOTE | 2020-03-15 22:51 | RADIOLOGY REPORT (SQ) ---
EXAM DESCRIPTION: XR CHEST 2 VIEWS COMPLETED DATE/TME: 03/15/2020 22:17 CLINICAL HISTORY: 49 years, Male, dyspnea COMPARISON: None. NUMBER OF VIEWS: 2 TECHNIQUE: 2 views of the chest LIMITATIONS: None. FINDINGS: Cardiomegaly. Osteopenia. Lungs clear. No pneumothorax IMPRESSION: Cardiomegaly. Lungs are clear copyright 2011 [employer] [facility]- All Rights Reserved
[2020-03-15 23:44] LABS: ABSOLUTE BASOPHILS # (AUTO) 0.1 10^3/uL (0.0-0.2); ABSOLUTE EOSINOPHILS # (AUTO) 0.4 10^3/uL (0.0-0.6); ABSOLUTE LYMPHOCYTES (AUTO) 1.8 10^3/uL (0.5-4.7); BASOPHILS % (AUTO) 0.9 % (0-2); EOSINOPHILS % (AUTO) 3.5 % (0-6); HEMATOCRIT 41.2 % (37.9-51.0); HEMOGLOBIN 14.3 g/dL (13.5-17.0); LYMPHOCYTES % (AUTO) 14.2 % (13-45); MEAN CORPUSCULAR HEMOGLOBIN 32.7 pg (27.0-33.4); MEAN CORPUSCULAR HGB CONC 34.6 g/dL (32.0-36.0); MEAN CORPUSCULAR VOLUME 94 fl (80-97); MONOCYTES % (AUTO) 8.5 % (3-13); PLATELET COUNT 283 10^3/uL (150-450); RED BLOOD COUNT 4.37 10^6/uL (4.35-5.55); RED CELL DISTRIBUTION WIDTH 14.4 % (11.5-14.0); SEGMENTED NEUTROPHILS % (AUTO) 72.9 % (42-78); TOTAL CELLS COUNTED % (AUTO) 100 %; WHITE BLOOD COUNT 12.3 10^3/uL (4.0-10.5)
[2020-03-16] MEDS ORDERED: FUROSEMIDE INJ/PF 20 MG/2 ML SDV IV ONE ×2 (00:03→03:29)
[2020-03-16 00:16] LABS: ALBUMIN 3.7 g/dL (3.5-5.0); ALKALINE PHOSPHATASE 73 U/L (38-126); ASPARTATE AMINO TRANSFERASE 59 U/L (17-59); BILIRUBIN,TOTAL 0.7 mg/dL (0.2-1.3); BLOOD UREA NITROGEN 7 mg/dL (7-20); CALCIUM 8.8 mg/dL (8.4-10.2); CARBON DIOXIDE 28 mmol/L (22-30); CHLORIDE 94 mmol/L (98-107); CREATINE KINASE 64 U/L (55-170); GLUCOSE 135 mg/dL (75-110); POTASSIUM 3.7 mmol/L (3.6-5.0); TOTAL PROTEIN 7.7 g/dL (6.3-8.2)
[2020-03-16 00:17] LABS: ANION GAP 9 (5-19)
--- NOTE | 2020-03-16 00:39 | ER Document Report ---
Entered by ЮЛИЯ CORONEL SCRIBE 03/16/20 0006 Acting as scribe for:WINSTON CARDENAS IV, MD ED General - General Chief Complaint: Shortness Of Breath Stated Complaint: SHORT OF BREATH / SWELLING Time Seen by Provider: 03/15/20 22:15 Primary Care Provider: LORIE GRACE MD [Primary Care Provider] - Follow up as needed Mode of Arrival: Wheelchair Information source: Patient Notes: This 49 year old male patient with a history of CHF, morbid obesity, COPD, and sleep apnea with CPAP presents to the ED today with complaints of worsening shortness of breath, chest pain, and bilateral lower extremity swelling for the past x1 week. Patient states that he has been compliant with his medications, but ran out of Lasix today. ED nurse reports that the patient's O2 saturation was initially 88-92% on RA, so she placed him on 2L supplemental O2 with sats increasing to 96%. TRAVEL OUTSIDE OF THE [place] IN LAST 30 DAYS: No - Related Data Allergies/Adverse Reactions: No Known Allergies Allergy (Verified 05/06/18 00:55) Home Medications: lasix, allopurinol, KCL, protonix, -see list Past Medical History - General Information source: Patient - Social History Smoking Status: Former Smoker Cigarette use (# per day): No Chew tobacco use (# tins/day): No Smoking Education Provided: No Family History: Reviewed & Not Pertinent, Hypertension Patient has suicidal ideation: No Patient has homicidal ideation: No - Past Medical History Cardiac Medical History: Reports: Hx Congestive Heart Failure - Unknown ejection fraction, Hx Hypertension Pulmonary Medical History: Reports: Hx COPD, Hx Sleep Apnea GI Medical History: Reports: Hx Gastroesophageal Reflux Disease Musculoskeletal Medical History: Reports Hx Arthritis Psychiatric Medical History: Reports: Hx Anxiety, Hx Depression Past Surgical History: Reports: Hx Orthopedic Surgery - shoulder - Immunizations Hx Diphtheria, Pertussis, Tetanus Vaccination: Yes Review of Systems - Review of Systems Constitutional: No symptoms reported EENT: No symptoms reported Cardiovascular: See HPI, Chest pain Respiratory: See HPI, Short of breath Gastrointestinal: No symptoms reported Genitourinary: No symptoms reported Male Genitourinary: No symptoms reported Musculoskeletal: See HPI, Leg swelling Skin: No symptoms reported Hematologic/Lymphatic: No symptoms reported Neurological/Psychological: No symptoms reported -: Yes All other systems reviewed and negative Physical Exam - Vital signs Vitals: Temp Pulse Resp BP Pulse Ox 98.8 F 80 21 H 135/81 H 94 03/15/20 21:28 03/15/20 21:28 03/15/20 21:28 03/15/20 21:28 03/15/20 21:28 - General General appearance: Other - Very somnolent and arousable to moderate physical stimuli, but then becomes somnolent with snoring respirations In distress: None - HEENT Head: Normocephalic, Atraumatic Eyes: Normal Pupils: PERRL - Respiratory Respiratory status: No respiratory distress Chest status: Prolonged expirations Breath sounds: Normal Chest palpation: Normal - Cardiovascular Rhythm: Regular Heart sounds: Normal auscultation Murmur: No Friction rub: No Gallop: None auscultated - Abdominal Inspection: Morbidly Obese Distension: Distended Bowel sounds: Hypoactive Tenderness: Nontender Organomegaly: No organomegaly - Back Back: Normal, Nontender - Extremities General upper extremity: Normal inspection General lower extremity: Edema - 2+ pitting edema to BLE - Neurological Neuro grossly intact: Yes - Psychological Associated symptoms: Normal affect, Normal mood - Skin Skin Temperature: Warm Skin Moisture: Dry Skin Color: Normal Course - Re-evaluation Re-evalutation: 03/16/20 04:16 Patient is now much more awake and alert after Narcan. Patient was sitting up in a chair at the bedside. [place] controlled substance database was reviewed by this MD. Patient admits to taking OxyContin ER 30 mg in addition to 10 mg Percocet on a daily basis. Patient denies abuse of prescribed narcotics. Patient has diuresed over a liter of fluid and has had a decrease in the swelling in his lower extremities bilaterally. Results of ED MSE discussed with patient. All questions were answered prior to discharge. Emergency signs and symptoms, reasons return to the emergency department discussed with patient. - Vital Signs Vital signs: Temp Pulse Resp BP Pulse Ox 98.8 F 80 17 146/58 H 99 03/15/20 21:28 03/15/20 21:28 03/16/20 03:01 03/16/20 03:01 03/16/20 03:01 - Laboratory Result Diagrams: 03/15/20 23:29 03/15/20 23:29 Laboratory results interpreted by me: 03/15/20 03/15/20 03/15/20 23:29 23:29 23:29 WBC 12.3 H RDW 14.4 H Absolute Neuts (auto) 9.0 H Carbonic Acid ABG pCO2 ABG pO2 ABG HCO3 ABG Total CO2 Sodium 130.9 L Chloride 94 L Glucose 135 H NT-Pro-B Natriuret Pep 137 H 03/16/20 00:29 WBC RDW Absolute Neuts (auto) Carbonic Acid 1.53 H ABG pCO2 50.7 H ABG pO2 73.8 L ABG HCO3 28.3 H ABG Total CO2 29.9 H Sodium Chloride Glucose NT-Pro-B Natriuret Pep - Diagnostic Test Radiology reviewed: Reports reviewed - EKG Interpretation by Me Additional EKG results interpreted by me: 03/16/20 04:18 EKG obtained on 03/15/2020 at 2111 hrs. was interpreted by this MD. Findings normal sinus rhythm, rate 89, normal axis, P waves proceed QRS complexes, QRS complexes appear narrow, there are no obvious patterns of ST segment elevation or depression present to suggest acute myocardial ischemia or infarction. Impression: Normal sinus rhythm with nonspecific ST segments. Discharge - Discharge Clinical Impression: Bilateral lower extremity edema Condition: Stable Disposition: HOME, SELF-CARE Additional Instructions: Return to the Emergency Department without delay if any worse. HOME CARE INSTRUCTIONS & INFORMATION: Thank you for choosing us for your medical needs. We hope you're satisfied with the care you received. After you leave, you must properly care for your problem and, at the same time, observe its progress. Any condition can change. Some illnesses can change rapidly over hours or days. If your condition worsens, return to the Emergency Department or see your physician promptly. ABOUT YOUR X-RAYS AND EKG'S: If you had an EKG or X-rays taken, they have been read by the Emergency Physician. The X-rays and EKG's will also be read by a Radiologist or Internal Communications Specialist within 24 hours. If discrepancies are noted, you will be notified by telephone. Please be certain the ED has a correct telephone number & address where you can be reached. Also, realize that some fractures or abnormalities do not show up on initial X-rays. If your symptoms continue, see your physician. ABOUT YOUR LABORATORY TEST: If you had laboratory tests, the results have been reviewed by the Emergency Physician. Some test results (for example cultures) may not be available for several days. You will be contacted if any test result shows you need additional treatment. Please be certain the ED has a correct telephone number and address where you can be reached. ABOUT YOUR MEDICATIONS: You will receive instructions on how to take your medicine on the prescription label you receive. Additional information may be provided by the Pharmacy. If you have questions afterwards, call the ED for clarification or further instructions. Some prescribed medications may cause dr owsindavid. Do not perform tasks such as driving a car or operating machinery without consulting your Pharmacist. If you feel you need a refill of pain medication, your condition will need re-evaluation. Please do not call for a refill of any medication. ABOUT YOUR SIGNATURE: Signature of this document acknowledges to followin. Understanding that you received emergency treatment and that you may be released before al medical problems are known or treated. Please be certain the ED has a correct phone number & address where you can be reached. 2. Acknowledgement that you will arrange for follow-up care as recommended. 3. Authorization for the Emergency Physician to provide information to your follow-up Physician in order to maximize your care. AT ANY TIME, IF YOUR SYMPTOMS CHANGE SIGNIFICANTLY OR WORSEN OR YOU DEVELOP NEW SYMPTOMS, RETURN TO THE EMERGENCY DEPARTMENT IMMEDIATELY FOR RE-EVALUATION. OUR GOAL IS TO PROVIDE EXCELLENT MEDICAL CARE! WE HOPE THAT WE HAVE MET YOUR EXPECTATIONS DURING YOUR EMERGENCY DEPARTMENT VISIT AND THAT YOU FEEL YOU HAVE RECEIVED EXCELLENT CARE! Edema, Peripheral You have swelling in your legs. This is called peripheral edema. It can be caused by "leaky capillaries," inflammation, disease of the leg veins, or excess salt and water in your body. Edema may be a sign of heart, kidney, or liver disease. A medical evaluation can determine if there is a serious underlying cause for your edema. Avoid prolonged standing. If you must sit for a long time, occasionally get up and walk around or elevate your legs. Support stockings can be helpful in limiting swelling. Often diuretic or water pills are used to remove excess salt and water from your body. Call the doctor or return if you develop increased swelling, pain, or redness, shortness of breath, chest pain, or any other significant change. Referrals: LORIE GRACE MD [Primary Care Provider] - 03/16/20 I personally performed the services described in the documentation, reviewed and edited the documentation which was dictated to the scribe in my presence, and it accurately records my words and actions.
[2020-03-16 00:56] LABS: ARTERIAL BLOOD FIO2 2L; ARTERIAL BLOOD H2CO3 1.53 mmol/L (1.05-1.35); ARTERIAL BLOOD HCO3 28.3 mmol/L (20-24); ARTERIAL BLOOD O2 SATURATION 94.2 % (94-98); ARTERIAL BLOOD PCO2 50.7 mmHg (35-45); ARTERIAL BLOOD PH 7.37 (7.35-7.45); ARTERIAL BLOOD PO2 73.8 mmHg (80-100); ARTERIAL BLOOD TOTAL CO2 29.9 mmol/L (23-27)
[2020-03-16 01:38] LABS: CREATINE KINASE MB 1.21 ng/mL (<4.55); NT PRO BNP 137 pg/mL (<125); TROPONIN I < 0.012 ng/mL
[2020-03-16] MEDS ORDERED: NALOXONE HCL INJ/PF 0.4 MG/1 ML SDV IV ONE ×2 (02:46→03:29)
[2020-03-16 05:19] VITALS: BP 142/73
--- NOTE | 2020-03-16 06:35 | EKG REPORT ---
SEVERITY:- NORMAL ECG - SINUS RHYTHM : Confirmed by: Uvaldo Figueredo MD 16-Mar-2020 06:34:41
== END 2020-03-16 05:11 | disposition home or self-care (01) ==
LOC: ER 21:01
DX: I11.0 Hypertensive heart disease with heart failure (principal); I50.9 Heart failure, unspecified; J44.9 Chronic obstructive pulmonary disease, unspecified; R07.9 Chest pain, unspecified; R06.02 Shortness of breath; R40.0 Somnolence; Z79.899 Other long term (current) drug therapy; Z87.891 Personal history of nicotine dependence; Z79.891 Long term (current) use of opiate analgesic
CPT/HCPCS: 93005; 96376; 99285; 96374; 96375; 36415; 82553; 82803; 82550; 85025; 80053; 84484; 83880; 71046; 93010; J1940; J2310